=== PATIENT | male | born 1960 | race Caucasian/White ===

== ENCOUNTER 2018-06-05 13:15 | Outpatient (RCR) | payer OTHER, SELFPAY ==
--- NOTE | 2017-08-07 15:55 | MASS.EVAL_ITS ---
Massage Therapy Evaluation: Initial Evaluation Date: 08/03/2017 SUBJECTIVE: Keven is a 56 year old male who was referred to the [facility] facility for a massotherapy evaluation by Dr. Bernardo García with the diagnosis of leg pain and low back pain. Keven presents today with the symptoms of tension, pain and numbness in his right leg and tension and pain in his middle and lower back. He reports having a medical history of surgery on his right knee in May 2016 with radiating pain and numbness in his right leg since surgery. He reports having minimal limitations during his daily activities currently. OBJECTIVE: Upon observation Keven has poor posture with his head forward and shoulders forward from the neutral position in sitting and standing. After examination and palpation I found Keven to have very high muscle tension with tenderness and myofascial restrictions in his right quads, hamstrings, gastroc and soleus. His thoracic and lumbar paraspinals were tender with muscle knots. His hips and lumbar region were also tight with tender points. The first treatment consisted of a one hour massage to his lower extremities and back with myofascial release, muscle stripping, trigger point compression techniques, and cervical manual traction. ASSESSMENT: I feel that Keven is a good candidate for massotherapy at this time. He had a favorable response to the first treatment with reduction in his muscle aches, pain and tension. He also had improvement in his lower extremity flexibility. PLAN: The plan of care was reviewed with the patient. The patient is to be seen on as needed basis for a total of ten sessions with the recommendation of once every four weeks for a one hour treatment.
--- NOTE | 2018-06-05 19:56 | DS.PCM_ITS ---
Massage Therapy Discharge Summary: Discharge Date: 06/05/2018 Keven was seen for a massotherapy evaluation on 08/03/2017 with the diagnosis of leg pain and low back pain. He was treated with ten sessions of massage therapy consisting of deep pressure soft tissue techniques, myofascial release and trigger point compression to his thoracic, lower back, hips and lower extremities. Keven responded well to the therapy by reporting decreased tension and pain throughout his lower back, hips and legs. His goals for therapy were met throughout the treatment sessions. At this time this patient is being discharged from our care at [facility] facility.
== END 2018-06-05 19:00 | disposition home or self-care (01) ==
LOC: MASS 13:15
PROVIDERS: Family Provider Family Medicine; PCP Family Medicine; Visit Provider Family Medicine
DX: M54.5 Low back pain (principal)
CPT/HCPCS: 97124

== ENCOUNTER 2019-06-24 11:15 | Outpatient (RCR) | payer OTHER, SELFPAY ==
--- NOTE | 2018-12-11 16:33 | MASS.EVAL_ITS ---
Massage Therapy Evaluation: Initial Evaluation Date: 12/10/2018 SUBJECTIVE: Keven is a 57 year old male who was referred to the [facility] facility for a massotherapy evaluation by Dr. García with the diagnosis of hip deformity. Keven presents today with the symptoms of pain and tension in his right calf. He also complains of tension and pain in his neck, low back and hips. Keven reports that he has a past medical history of a right partial knee replacement and issues with his gastroc/soleus and achilles tendons. He reports having increa sed symptoms since running two days ago. OBJECTIVE: Upon observation Keven has some posture issues with his head and shoulders forward from the neutral position in sitting and standing. After examination and palpation I found Keven to have high muscle tension with tenderness and myofascial restrictions in his sub occipitals, levator scapulae, trapezius, rhomboids, scalenes, and thoracic paraspinals. His QL?s, lumbar paraspinals, piriformis, glute medius, glute minimus, quads, hamstrings and calves all had high tension with fascial restrictions and tender points. His right gastroc/soleus muscles were tender with ropey fibers in the central/medial aspect. The first treatment consisted of a one hour massage to his legs, hips, back and neck with myofascial release, muscle stripping, trigger point compression techniques. ASSESSMENT: I feel that Keven is a good candidate for massotherapy at this time. He had a favorable response to the first treatment with reduction in his muscle aches, pain and tension. He also had improvement in his cervical flexibility and low back flexibility. PLAN: The plan of care was reviewed with the patient. The patient is to be seen on an as needed basis for a total of ten sessions with the recommendation of once every month for a one hour treatment.
--- NOTE | 2019-06-24 12:25 | DS.PCM_ITS ---
Massage Therapy Discharge Summary: Discharge Date: 06/24/2019 Keven was seen for a massotherapy evaluation on 12/10/2018 with the diagnosis of hip deformity. He was treated with ten sessions of massage therapy consisting of moderate to deep pressure soft tissue techniques, myofascial release and trigger point compression to his cervical, thoracic, lower back, upper extremities, lower extremities and hips. Keven responded well to the therapy by reporting decreased tension and pain throughout his head, neck, shoulders, lower back and hips. His goals for therapy were met throughout the treatment sessions. At this time this patient is being discharged from our care at [facility] facility.
== END 2019-06-24 19:00 | disposition home or self-care (01) ==
LOC: MASS 11:15
PROVIDERS: Family Provider Family Medicine; PCP Family Medicine; Referring Provider Family Medicine; Visit Provider Family Medicine
DX: M21.959 Unspecified acquired deformity of unspecified thigh (principal)
CPT/HCPCS: 97124

== ENCOUNTER → 2020-03-12 | Outpatient (CLI) | payer OTHER, SELFPAY ==
[2017-07-26 14:18] VITALS: BMI 28.2
[2020-03-12 11:09] LABS: PSA,Total - Annual Screen 0.64 ng/mL (0.00-4.00)
== END | disposition home or self-care (01) ==
LOC: MFPLAB 08:30
PROVIDERS: PCP Family Medicine; Referring Provider Family Medicine; Visit Provider Family Medicine
DX: Z12.5 Encounter for screening for malignant neoplasm of prostate (principal)
CPT/HCPCS: 84153; G0103

== ENCOUNTER 2020-05-28 07:00 | Outpatient (RCR) | payer OTHER, SELFPAY ==
--- NOTE | 2019-08-30 09:47 | MASS.EVAL ---
Massage Therapy Evaluation: Massage Therapy Evaluation Initial Evaluation Date- 08-23-2019 Subjective- Keven Pérez was referred to [facility] by Doctor García for back and neck pain. Objective- Patient goals are to decrease right leg symptoms and to decrease tightness in right calf. Treatment - 60 minute massage therapy to lower body. Treatment of (B) quadriceps, hamstrings, gastrocnemius and soleus muscles, with attention to R soleus laterallly. Plan- Patient responded well to first treatment. To be seen one time per month for a total of ten treatments. KaraB. Marroquin
--- NOTE | 2020-06-15 11:52 | MASS.DISCH ---
Massage Therapy Discharge Summary: Initial Evaluation Date: 08/23/2019 Diagnosis: Back and Neck pain No. of Visits: 9 Date of last visit: 05/28/2020 This patient is being discharged from our care at the [facility]. Thank you, Luz Rajan LMT
== END 2020-05-28 19:00 | disposition home or self-care (01) ==
LOC: MASS 07:00
PROVIDERS: PCP Family Medicine; Referring Provider Family Medicine; Visit Provider Family Medicine
DX: M54.9 Dorsalgia, unspecified (principal); M54.2 Cervicalgia
CPT/HCPCS: 97124

== ENCOUNTER → 2020-08-25 | Outpatient (CLI) | payer OTHER, SELFPAY ==
[2017-07-26 14:18] VITALS: BMI 28.2
[2020-08-26 18:35] LABS: M R Staph aureus DNA By PCR Negative (Negative); Probe Check PASS; Specimen Processing Control PASS; Staph aureus DNA By PCR NEGATIVE (Negative)
== END | disposition home or self-care (01) ==
PROVIDERS: PCP Family Medicine; Referring Provider Podiatrist; Visit Provider Podiatrist
DX: L97.829 Non-pressure chronic ulcer of other part of left lower leg with unspecified severity (principal)
CPT/HCPCS: 87070; 87075; 87205; 87640

== ENCOUNTER 2021-04-12 09:45 | Outpatient (RCR) | payer OTHER, SELFPAY ==
[2017-07-26 14:18] VITALS: BMI 28.2
--- NOTE | 2020-08-31 15:36 | MASS.EVAL ---
Massage Therapy Evaluation: Initial Evaluation Date: 08/27/2020 SUBJECTIVE: Keven is a 59 year old male who was referred to the [facility] facility for a massotherapy evaluation by Dr. García with the diagnosis of dorsalgia and cervicalgia. Keven presents today with the symptoms of pain and tension in his head, neck, shoulders, back, hips and calf muscles. Keven reports having some pain and inflammation in his left foot from having a plantar wart removed about a week ago. He reports having minimal change in symptoms after his routine exercise stretching program. OBJECTIVE: Upon observation Keven has some posture issues with his head and shoulders forward from the neutral position in sitting and standing. After examination and palpation I found Keven to have high muscle tension with tenderness and myofascial restrictions in his sub occipitals, levator scapulae, trapezius, rhomboids, scalenes, and paraspinals muscle group. His QL?s, lumbar paraspinals, piriformis, glute medius, glute minimus and gastrocks all had high tension with fascial restrictions and tender points. The first treatment consisted of a one hour massage with myofascial release, muscle stripping, trigger point compression techniques. ASSESSMENT: I feel that Keven is a good candidate for massotherapy at this time. He had a favorable response to the first treatment with reduction in his muscle aches, pain and tension. He also had improvement in his cervical flexibility and low back flexibility. PLAN: The plan of care was reviewed with the patient. The patient is to be seen on an as needed basis for a total of ten sessions with the recommendation of once every month for a one hour treatment.
--- NOTE | 2021-06-14 12:39 | MASS.DISCH ---
Massage Therapy Discharge Summary: Discharge Date: 06/14/2021 Keven was seen for a massotherapy evaluation on 08/27/2020 with the diagnosis of dorsalgia and cervicalgia. He was treated with nine sessions of massage therapy consisting of deep pressure soft tissue techniques, myofascial release and trigger point compression to his cervical, thoracic, lower back and hips. Keven responded well to the therapy by reporting decreased tension and pain throughout his neck, shoulders, lower back, lower extremities and hips. His goals for therapy were met throughout the treatment sessions. At this time this patient is being discharged from our care at [facility] facility.
== END 2021-04-12 19:00 | disposition home or self-care (01) ==
LOC: MASS 09:45
PROVIDERS: PCP Family Medicine; Referring Provider Family Medicine; Visit Provider Family Medicine
DX: M54.2 Cervicalgia (principal)
CPT/HCPCS: 97124

== ENCOUNTER 2021-07-05 09:11 | Outpatient (CLI) | payer OTHER, SELFPAY ==
--- NOTE | 2021-07-05 09:15 | RAD_ITS ---
STUDY: X-RAY - LEFT KNEE REASON FOR EXAM: Male, 60 years old. Pain TECHNIQUE: 4 view(s) of the knee. COMPARISON: Comparison is made with prior study dated 01/23/2015. FINDINGS: Normal visualized distal femur. Normal visualized proximal tibia and fibula. Normal proximal tibiofibular articulation. There is moderate degenerative arthrosis of the medial femorotibial compartment with moderate joint space narrowing. Normal lateral femorotibial compartment. There is mild degenerative arthrosis of the patellofemoral articulation. Small joint effusion. RAD/Knee 4 or More Views IMPRESSION: Degenerative arthrosis. Electronically Signed: Gene Chang MD at 13:20 EST , Service support ,
--- NOTE | 2021-07-05 09:20 | RAD_ITS ---
STUDY: X-RAY - RIGHT KNEE REASON FOR EXAM: Male, 60 years old. Pain TECHNIQUE: 4 view(s) of the knee. COMPARISON: Comparison is made with prior examination dated 06/25/2015. FINDINGS: There is demineralization of the visualized distal femur. Normal visualized proximal tibia and fibula. Normal proximal tibiofibular articulation. The patient is status post medial hemiarthroplasty. There is good alignment. Normal lateral femorotibial compartment. Normal patellofemoral articulation. Small joint effusion. RAD/Knee 4 or More Views IMPRESSION: Status post right medial hemiarthroplasty. Small joint effusion. Electronically Signed: Gene Chang MD at 13:22 EST , Service support ,
== END 2021-07-05 23:59 | disposition home or self-care (01) ==
LOC: MTRAD 09:12
PROVIDERS: PCP Family Medicine; Referring Provider Orthopaedic Surgery; Visit Provider Orthopaedic Surgery
DX: M25.562 Pain in left knee (principal); M25.561 Pain in right knee
CPT/HCPCS: 73564

== ENCOUNTER 2021-08-24 08:48 | Outpatient (CLI) | payer OTHER, SELFPAY ==
[2021-08-24 10:17] LABS: Absolute Lymphocyte Count 1.54 X10^3/uL (0.83-4.51); Absolute Neutrophil Count 3.5 X10^3/uL (2.0-7.7); Basophil# 0.05 X10^3/uL; Basophil% 0.8 % (0-1); Eosinophil# 0.35 X10^3/uL; Eosinophils% 5.8 % (0-5); Hemoglobin 15.4 g/dL (13.0-16.5); Lymphocyte # 1.54 X10^3/ul (0.83-4.51); Lymphocyte % 25.6 % (19-41); Mean Corp Hgb Conc 33.5 g/dL (32-36); Mean Corpuscular Hgb 29.4 pg (27.0-32.0); Mean Corpuscular Volume 87.8 fL (80-94); Mean Platelet Vol. 10.1 fl (6.2-12.0); Monocyte% 8.3 % (0-10); NRBC Flagged by Analyzer 0 % (0-5); Neutrophil # 3.54 X10^3/uL (2.7-7.7); Platelet Count 230 K/mm3 (150-450); RBC Distribution Width CV 12.2 % (11.6-14.6); RBC Distribution Width SD 39.3 fl (35.1-43.9); Red Blood Count 5.24 M/mm3 (4.6-6.2)
[2021-08-24 10:23] LABS: Prothrombin Time (Protime)PT. 12.6 SECONDS (11.7-14.9)
[2021-08-24 10:24] LABS: Partial Thromboplast Time 28.4 Seconds (24.1-36.2)
[2021-08-24 10:33] LABS: Anion Gap 3 (5-15); BUN 18 mg/dL (7-18); BUN/Creat Ratio 15.1 RATIO (10-20); Calcium,Total 9.2 mg/dL (8.5-10.1); Chloride 111 mmol/L (98-107); Creatinine, Serum 1.19 mg/dL (0.70-1.30); EST Glomerular Filtration Rate 67 mL/min (>60); Est Glom Filt Rate - Afr Amer 81 mL/min (>60); Glucose 99 mg/dL (74-106); Potassium 4.3 mmol/L (3.5-5.1); Sodium Level 141 mmol/L (136-145)
[2021-08-24 10:43] LABS: Vitamin D,25 Hydroxy 30.4 ng/mL
== END 2021-08-24 23:59 | disposition home or self-care (01) ==
LOC: MFPLAB 08:49
PROVIDERS: PCP Family Medicine; Referring Provider Family Medicine; Visit Provider Family Medicine
DX: Z01.818 Encounter for other preprocedural examination (principal); Z12.5 Encounter for screening for malignant neoplasm of prostate; E55.9 Vitamin D deficiency, unspecified
CPT/HCPCS: 36415; 80048; 82306; 84153; 85025; 85610; 85730; 87086; G0103

== ENCOUNTER → 2024-03-11 | Outpatient (CLI) | payer OTHER, SELFPAY ==
[2024-03-11 07:29] LABS: Bacteria 0 SEEN /hpf (None Seen); Mucous, Urine 0 SEEN /hpf (<or=2+); Red Blood Cells-Urine 0 SEEN /hpf (0-5); Squamous Epithelial Cells - UA 0 SEEN /hpf (0-5); White Blood Cells 0 SEEN /hpf (0-5)
[2024-03-11 10:29] LABS: Color, Urine Yellow (Yellow); Glucose, Dipstick Normal (Normal); Ketone-Dipstick Negative (Negative); Leukocyte Esterase-Dipstick Negative /ul (Negative); Nitrite-Dipstick Negative (Negative); Occult Blood-Urine Negative /ul (Negative); Protein-Dipstick Negative (Negative); Specific Gravity, Urine 1.025 (1.002-1.030); Urine Bilirubin Dipstick Negative (Negative); Urine Clarity Clear (Clear); Urine Urobilinogen Normal (Normal)
[2024-03-11 10:34] LABS: Absolute Lymphocyte Count 1.46 X10^3/uL (0.83-4.51); Absolute Neutrophil Count 3.4 X10^3/uL (2.0-7.7); Basophil# 0.02 X10^3/uL; Basophil% 0.4 % (0-1); Eosinophil# 0.21 X10^3/uL; Eosinophils% 3.7 % (0-5); Hematocrit 44.2 % (40-54); Hemoglobin 14.6 g/dL (13.0-16.5); Lymphocyte # 1.46 X10^3/ul; Lymphocyte % 25.6 % (19-41); Mean Corpuscular Hgb 29.1 pg (27.0-32.0); Mean Platelet Vol. 9.9 fl (6.2-12.0); Monocyte% 10.5 % (0-10); NRBC Flagged by Analyzer 0 % (0-5); Neutrophil % 59.4 % (47-70); Platelet Count 255 K/mm3 (150-450); RBC Distribution Width CV 12.3 % (11.6-14.6); RBC Distribution Width SD 39.9 fl (35.1-43.9); Red Blood Count 5.02 M/mm3 (4.6-6.2); White Blood Count 5.7 K/mm3 (4.4-11.0)
[2024-03-11 10:52] LABS: ALB/GLOB Ratio 1.1 RATIO (0.9-2.4); AST(SGOT) 22 U/L (15-37); Alanine Aminotransfer ALT/SGPT 34 U/L (16-61); Albumin, Serum 3.5 g/dL (3.2-5.0); Alkaline Phosphatase 87 U/L (45-117); Anion Gap 7 (5-15); BUN 20 mg/dL (7-18); BUN/Creat Ratio 15.3 RATIO (10-20); Bilirubin, Direct 0.33 mg/dL (0.00-0.30); Calcium,Total 9.4 mg/dL (8.5-10.1); Chloride 106 mmol/L (98-107); Cholesterol 160 mg/dL (200); Creatinine, Serum 1.31 mg/dL (0.70-1.30); EST Glomerular Filtration Rate 59 mL/min (>60); Est Glom Filt Rate - Afr Amer 72 mL/min (>60); Globulin 3.3 g/dL (2.2-4.2); Glucose 95 mg/dL (74-106); High Density Lipoprotein 56 mg/dL; LDH 172 U/L (87-241); PSA,Total - Annual Screen 0.75 ng/mL (0.00-4.00); Phosphorus 2.3 mg/dL (2.5-4.9); Potassium 4.2 mmol/L (3.5-5.1); Protein, Total 6.8 g/dL (6.4-8.2); Sodium Level 140 mmol/L (136-145); Triglycerides 119 mg/dL; Uric Acid 6.2 mg/dL (3.5-7.2); Very Low Density Lipoprotein 24 mg/dL (5-40)
[2024-03-11 10:53] LABS: Vitamin D,25 Hydroxy 80.4 ng/mL
[2024-03-19 16:10] LABS: Testosterone, % Free 3.76 % (1.50-4.20); Testosterone, Free 11.58 ng/dL (5.00-21.00); Testosterone, Total 308 ng/dL (264-916)
== END | disposition home or self-care (01) ==
PROVIDERS: PCP Family Medicine; Referring Provider Family Medicine; Visit Provider Family Medicine
DX: Z12.5 Encounter for screening for malignant neoplasm of prostate (principal); E29.1 Testicular hypofunction; E55.9 Vitamin D deficiency, unspecified
CPT/HCPCS: 81001; 82306; 84153; 84402; 84403; G0103

== ENCOUNTER 2024-05-03 05:40 | Day surgery (SDC) | payer OTHER, SELFPAY ==
[2024-05-03] VITALS (8 sets, daily range): BP systolic 102–147; BP diastolic 66–79; PULSE 56–72; RESP 16–18; TEMP 36.3–36.7; O2SAT 96–99; BMI 25.8
== END 2024-05-03 07:47 | disposition home or self-care (01) ==
LOC: EN 05:41 → AC 05:42
PROVIDERS: PCP Family Medicine; Referring Provider Family Medicine; Visit Provider Internal Medicine Gastroenterology
PROC: 0DJD8ZZ Inspection of Lower Intestinal Tract, Via Natural or Artificial Opening Endoscopic (ICD-10-PCS; CPT 45378; principal; 2024-05-03 06:25)
DX: Z12.11 Encounter for screening for malignant neoplasm of colon (principal); D12.0 Benign neoplasm of cecum; K57.30 Diverticulosis of large intestine without perforation or abscess without bleeding
CPT/HCPCS: 45385; 88305; A4216; J2405

== ENCOUNTER 2024-11-09 22:04 | Inpatient (IN) | payer OTHER, SELFPAY ==
[2024-11-09 22:05] VITALS: BP 133/75; PULSE 50; RESP 18; TEMP 36.4; O2SAT 100
[2024-11-09 22:07] VITALS: BMI 25.4
[2024-11-09 22:11] VITALS: BP 153/81; PULSE 62; RESP 16; O2SAT 99
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
[2024-11-09] MEDS: Diphth,Pertuss(Acell),Tet Vac 0.5 ML Vial IM (22:31)
[2024-11-09] MEDS: Morphine 4 MG/ML Syringe IV ×2 (22:38→23:22)
--- NOTE | 2024-11-09 22:50 | RAD_ITS ---
PROCEDURE: SHOULDER MIN 2 VIEWS 11/09/2024 REASON FOR EXAM: INJURY/PAIN TECHNIQUE: Two views of the right shoulder COMPARISON: None FINDINGS: No acute fracture or dislocation. Mild degenerative changes of the glenohumeral and acromioclavicular joint. Acromiohumeral interval is maintained. Imaged lung ash are clear RAD/Shoulder min 2 Views IMPRESSION: No acute fracture or dislocation. Reading Location: [facility]
--- NOTE | 2024-11-09 22:50 | RAD_ITS ---
PROCEDURE: HIP, UNI W/ PELVIS 2-3 VIEWS 11/09/2024 REASON FOR EXAM: INJURY/PAIN TECHNIQUE: Three views of the right hip COMPARISON: None FINDINGS: Nondisplaced impacted fracture right femoral neck. Additional lucency along the posterior acetabulum, also concerning for a fracture. Mild bilateral osteoarthritis. No suspicious lytic or blastic lesions. SI joints are unremarkable. RAD/HIP, UNI W/ Pelvis 2-3 Views IMPRESSION: Nondisplaced impacted right femoral neck fracture and nondisplaced fracture pos terior acetabulum. Reading Location: [facility]
[2024-11-09 23:11] VITALS: BP 144/70; PULSE 63; RESP 16; TEMP 37; O2SAT 97
--- NOTE | 2024-11-09 23:14 | EKG12_ITS ---
Test Reason : DYSRHYTHMIA Blood Pressure : */* mmHG Vent. Rate : 62 BPM Atrial Rate : 62 BPM P-R Int : 162 ms QRS Dur : 96 ms QT Int : 440 ms P-R-T Axes : 31 10 5 degrees QTcB Int : 446 ms Sinus rhythm with occasional Premature ventricular complexes Otherwise normal ECG Confirmed by SEBASTIAN LIN, ROMEL ([id number]), science editor FÁTIMA ARITA ([id number]) on 11/11/2024 9:21:16 AM Referred By: Confirmed By: ROMEL CORTES MD
[2024-11-09 23:32] VITALS: BP 141/73; PULSE 60; RESP 16; TEMP 36.7; O2SAT 96
[2024-11-09 23:32] LABS: Absolute Lymphocyte Count 2.46 X10^3/uL (0.83-4.51); Absolute Neutrophil Count 6.9 X10^3/uL (2.0-7.7); Basophil# 0.06 X10^3/uL; Basophil% 0.6 % (0-1); Eosinophil# 0.26 X10^3/uL; Eosinophils% 2.4 % (0-5); Hematocrit 45.5 % (40-54); Hemoglobin 15.5 g/dL (13.0-16.5); Lymphocyte # 2.46 X10^3/ul (0.83-4.51); Lymphocyte % 23.1 % (19-41); Mean Corp Hgb Conc 34.1 g/dL (32-36); Mean Corpuscular Hgb 30.2 pg (27.0-32.0); Mean Corpuscular Volume 88.7 fL (80-94); Mean Platelet Vol. 10.4 fl (6.2-12.0); Monocyte# 0.96 X10^3/uL; NRBC Flagged by Analyzer 0 % (0-5); Neutrophil # 6.85 X10^3/uL (2.7-7.7); Neutrophil % 64.5 % (47-70); Platelet Count 242 K/mm3 (150-450); RBC Distribution Width CV 12.4 % (11.6-14.6); RBC Distribution Width SD 40.8 fl (35.1-43.9); Red Blood Count 5.13 M/mm3 (4.6-6.2); White Blood Count 10.6 K/mm3 (4.4-11.0)
[2024-11-09 23:45] LABS: International Normalized Ratio 1.1
[2024-11-09 23:46] LABS: Partial Thromboplast Time 24.4 Seconds (24.1-36.2)
[2024-11-10] VITALS (17 sets, daily range): BP systolic 119–168; BP diastolic 63–87; PULSE 55–84; RESP 14–17; TEMP 36.1–37.2; O2SAT 88–98; BMI 25.7
[2024-11-10 00:03] LABS: Anion Gap 13 (5-15); BUN 16 mg/dL (4-19); BUN/Creat Ratio 11.7 RATIO (10-20); Calcium,Total 9.7 mg/dL (7.6-11.0); Carbon Dioxide 25.2 mmol/L (21.0-32.0); Chloride 99 mmol/L (98-108); Creatinine, Serum 1.39 mg/dL (0.70-1.20); EST Glomerular Filtration Rate 58 (>60); Estimated Creatinine Clearance 63.07 ml/min (50-250); Glucose 105 mg/dL (70-99); Potassium 3.7 mmol/L (3.3-5.1); Sodium Level 138 mmol/L (133-145)
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
[2024-11-10 00:57] LABS: AST(SGOT) 37 U/L (<=37); Alanine Aminotransfer ALT/SGPT 28 U/L (<=46); Albumin, Serum 4.5 g/dL (3.4-4.8); Alkaline Phosphatase 88 U/L (40-129); Bilirubin, Direct 0.56 mg/dL (0.00-0.30); CPK Total, Creatine Kinase 283 U/L (24-195); Globulin 2.7 g/dL (2.2-4.2); Protein, Total 7.2 g/dL (5.9-8.4); Total Bilirubin 3.52 mg/dL (0.00-1.30)
[2024-11-10] MEDS: HYDROmorphone 0.5 MG/0.5 ML SYRINGE 0.2 MG IV (01:23)
[2024-11-10] MEDS: oxyCODONE 5 MG Tablet PO ×3 (01:37→22:06)
[2024-11-10 05:35] LABS: Absolute Lymphocyte Count 1.51 X10^3/uL (0.83-4.51); Absolute Neutrophil Count 5.1 X10^3/uL (2.0-7.7); Basophil# 0.03 X10^3/uL; Basophil% 0.4 % (0-1); Eosinophil# 0.21 X10^3/uL; Eosinophils% 2.8 % (0-5); Hematocrit 42.4 % (40-54); Hemoglobin 14.5 g/dL (13.0-16.5); Lymphocyte # 1.51 X10^3/ul (0.83-4.51); Lymphocyte % 19.9 % (19-41); Mean Corp Hgb Conc 34.2 g/dL (32-36); Mean Corpuscular Hgb 30.3 pg (27.0-32.0); Mean Corpuscular Volume 88.5 fL (80-94); Mean Platelet Vol. 10.1 fl (6.2-12.0); Monocyte# 0.68 X10^3/uL; NRBC Flagged by Analyzer 0 % (0-5); Neutrophil # 5.13 X10^3/uL (2.7-7.7); Neutrophil % 67.6 % (47-70); Platelet Count 202 K/mm3 (150-450); RBC Distribution Width CV 12.2 % (11.6-14.6); RBC Distribution Width SD 39.8 fl (35.1-43.9); Red Blood Count 4.79 M/mm3 (4.6-6.2); White Blood Count 7.6 K/mm3 (4.4-11.0)
[2024-11-10] MEDS: Acetaminophen 325 MG Tablet 650 MG PO (05:40)
[2024-11-10 05:46] LABS: International Normalized Ratio 1.1; Prothrombin Time (Protime)PT. 14.7 SECONDS (11.7-14.9)
[2024-11-10] MEDS: HYDROmorphone Inj 0.2 MG/ML SYRINGE IV (06:19)
[2024-11-10 07:07] LABS: ALB/GLOB Ratio 1.7 RATIO (0.9-2.4); AST(SGOT) 33 U/L (<=37); Alanine Aminotransfer ALT/SGPT 23 U/L (<=46); Albumin, Serum 3.9 g/dL (3.4-4.8); Alkaline Phosphatase 74 U/L (40-129); Anion Gap 10 (5-15); BUN 15 mg/dL (4-19); BUN/Creat Ratio 10.8 RATIO (10-20); Bilirubin, Direct 0.33 mg/dL (0.00-0.30); Calcium,Total 9.2 mg/dL (7.6-11.0); Chloride 104 mmol/L (98-108); Creatinine, Serum 1.41 mg/dL (0.70-1.20); EST Glomerular Filtration Rate 57 (>60); Estimated Creatinine Clearance 62.18 ml/min (50-250); Globulin 2.3 g/dL (2.2-4.2); Glucose 107 mg/dL (70-99); Potassium 4.2 mmol/L (3.3-5.1); Protein, Total 6.2 g/dL (5.9-8.4); Sodium Level 138 mmol/L (133-145); Total Bilirubin 4.07 mg/dL (0.00-1.30)
[2024-11-10 07:10] LABS: Magnesium 2.2 mg/dL (1.5-2.2); Phosphorus 3.8 mg/dL (2.7-4.5)
--- NOTE | 2024-11-10 08:57 | PCM.PRE.AN2 ---
ASA Classification* ASA Classification ASA Classification: 2 and E Assessment & Plan Anesthesia* Anesthesia Assessment Anesthesia Assessment: Discussed sedation and/or anesthesia options, risks, benefits, and alternatives with patient/parents/legal guardian/POA. Questions invited. The patient/parents/legal guardian/POA seems to understand and agrees to proceed with anesthesia plan. Reviewed the physical assessment, medical history, allergy history and patient home medications list prior to surgery/procedure/anesthetic and documented any changes. Performed airway and anesthesia risk assessments. Anesthesia Type Anesthesia Type: General (LMA, check ekg) Anesthesia Focused Assessment* Temperature: 97.4 F Pulse Rate: 55 Blood Pressure: 124/75 Respiratory Rate: 14 Pulse Ox: 97 Airway Assessment Mouth opens: >3 cm Mallampati Score: II Focused Labs Anesthesia Preop lab: CBC WBC 7.6 K/mm3 (4.4-11.0) 11/10/24 04:36 11/10/24 RBC 4.79 M/mm3 (4.6-6.2) 11/10/24 04:36 11/10/24 Hgb 14.5 g/dL (13.0-16.5) 11/10/24 04:36 11/10/24 Hct 42.4 % (40-54) 11/10/24 04:36 11/10/24 Plt Count 202 K/mm3 (150-450) 11/10/24 04:36 11/10/24 CHEMISTRY Potassium 4.2 mmol/L (3.3-5.1) 11/10/24 04:36 11/10/24 Sodium 138 mmol/L (133-145) 11/10/24 04:36 11/10/24 Magnesium 2.2 mg/dL (1.5-2.2) 11/10/24 04:36 11/10/24 Phosphorus 3.8 mg/dL (2.7-4.5) 11/10/24 04:36 11/10/24 BUN 15 mg/dL (4-19) 11/10/24 04:36 11/10/24 Creatinine 1.41 mg/dL (0.70-1.20) H 11/10/24 04:36 11/10/24 Glucose 107 mg/dL (70-99) H 11/10/24 04:36 11/10/24 TSH 4.790 uIU/mL (0.300-4.200) H 11/10/24 04:36 11/10/24 COAG PT 14.7 SECONDS (11.7-14.9) 11/10/24 04:36 11/10/24 Pre-Assessment Diagnosis/Proposed Procedure Planned Operative Procedure(s): orif right hip/ ant r hip replacement Anesthesia History Anesthesia History - racker octave board: Anesthesia History - racker octave board Hx Hospitalization No 05/01/24 15:51 Any Problems With Anesthesia Yes: cant wake up, and cant 11/10/24 00:46 void Cholinesterase deficiency No 11/10/24 00:46 You/Your Family Experience No 11/10/24 00:46 fever (hyperthermia) with Relationship Recent Exposure to Contagious No 11/10/24 00:46 Disease Does patient have nerve No 11/10/24 00:46 stimulator Patient instructed to have No 11/10/24 00:46 device shut off --Does patient have Pacemaker No 11/10/24 05:41 or ICD? When Was Last Pacemaker Check QUESTION #4 FULL TEXT: You/Your Family Experience fever (hyperthermia) with Anesthesia Last Oral Intake Last Oral intake: Last Oral Intake NPO since 00:00 11/10/24 05:41 Meds taken in AM with sips of Yes 11/10/24 05:41 water? Meds patient instructed to oxycodone & tylenol 11/10/24 05:41 take am of surgery PONV PONV - racker octave board: PONV - racker octave board Female HX of Motion Sickness HX of N/V After Surgery Non-Smoker Duration of Surgery greater than 60 minutes Number of Risk Factors PONV Score Height & Weight Height & Weight: Anesthesia: Height & Weight Height 6 ft 1 in 11/10/24 05:41 Weight: 88.541 kg 11/10/24 05:41 Body Mass Index (BMI) 25.7 11/10/24 05:41 Respiratory Assessment Respiratory Assessment - racker octave board: Respiratory Tract Infection Hx - racker octave board Hx Respiratory Tract Infection No 11/10/24 00:46 STOP Sleep Apnea STOP Sleep Apnea - racker octave board: STOP Sleep Apnea - racker octave board Hx Hypertension No 11/10/24 08:28 Hx Sleep Apnea No 11/10/24 00:43 CPAP No 05/03/24 07:12 BIPAP No 07/29/14 08:00 Do you snore loudly (louder No 11/10/24 00:43 than talking or can be heard Do you often feel tired/ No 11/10/24 00:43 fatigued/ sleepy during daytime? Has anyone observed you stop No 11/10/24 00:43 breathing during sleep? STOP Results Negative 11/10/24 00:43 QUESTION #5 FULL TEXT : Do you snore loudly (louder than talking or can be heard through closed doors)? 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 Specify any problems Hx of Preganancy in last 3 No 11/10/24 00:43 Months Nurse Filling Out Transfusion DREDICK 11/10/24 00:43 & Questions: Date: 11/10/24 11/10/24 00:43 Time: 00:43 11/10/24 00:43 Patient unable to answer at this time (ie. confused, unrespo /Reproduction History /Reproductive History - racker octave board: /Reproductive Hx- racker octave board Hx Now No 11/10/24 00:46 Gestational Age (in weeks): EDC: Hx Hx Para Hx Section SAB No 11/10/24 00:46 Active Medications Active Medications: Current Medications Generic Name Dose Route Start Last Admin Trade Name Freq PRN Reason Stop Dose Admin Acetaminophen 650 mg 11/10/24 00:10 11/10/24 05:40 Acetaminophen 325 Mg Tablet PO 650 mg Q6H PRN PRN Administration Pain 1-10 Or Fever >100.7 Enoxaparin Sodium 40 mg 11/10/24 10:00 11/10/24 07:49 Enoxaparin 40 Mg/0.4 Ml Syringe SC Not Given DAILY OMAR Sodium Chloride 250 mls @ 15 mls/hr 11/10/24 00:29 IV .[id number] PRN Saline Flush Sodium Chloride 250 mls @ 15 mls/hr 11/10/24 00:29 IV .[id number] PRN Additional IVPB Infusion Oxycodone HCl 5 mg 11/10/24 00:10 11/10/24 05:39 Oxycodone 5 Mg Tablet PO 5 mg Q4H PRN PRN Administration Pain Score 4-10 Sodium Chloride 10 - 40 ml 11/10/24 00:29 0.9% Saline Lock 10 Ml Syringe IV UD PRN SALINE FLUSH [facility] Medical History Wears glasses Alcohol use Arthritis Non-smoker Melanoma Basal cell carcinoma Home Medications ?Medication ?Instructions ?Recorded ?Last Taken ?Type cholecalciferol (vitamin D3) 125 250 mcg PO QDAY 05/01/24 05/02/24 History mcg (5,000 unit) tablet (Vitamin D3) Allergy/AdvReac Type Severity Reaction Status Date / Time sulfamethoxazole (From Allergy Rash Verified 11/09/24 22:05 Bactrim) trimethoprim (From Bactrim) Allergy Rash Verified 11/09/24 22:05 Family History Mother Crohn's disease Basal cell carcinoma Father Diabetes Basal cell carcinoma Melanoma Surgical History History of medial meniscus repair of left knee Hx of left cataract extraction Hx of total knee arthroplasty Hx of tonsillectomy History of Achilles tendon repair History of partial knee replacement Social History household members: spouse number of children: 2 current occupational status: employed 

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
--- NOTE | 2024-11-10 10:04 | PCM.HOSP.N ---
Hospitalist Note Patient was seen and examined today, he is due to go to surgery today for repair of his right hip fracture, I talked briefly with orthopedic surgery about his care-it appears the patient will have a right hip arthroplasty. Patient appears comfortable at rest this morning and is not short of breath and does not complain of any chest pain. The only medication he takes at home is vitamin D3. Patient appears medically stable for surgery at this time.
--- NOTE | 2024-11-10 10:55 | FEM_PTH ---
PATIENT: LOYDA GONZALEZ LOC: [facility] U#:[id number] AGE/SX: 63/M ROOM: [facility] [place] RE11/10/[address]: Dr. Noel Case DO : 1960 BED: 1 DIS: 11/11/2024 SPEC #: [id number] RECD: 11/11/24 07:33 STATUS: ROBIN MARADIAGA #: [id number] NOREEN: 11/10/24 10:[address]: Inocencio Wallace DEPT: SURGICAL PATHOLOGY RECD BY: Jyoti Streeter ENTERED: 11/11/24 08:12 SP TYPE: FEM HEAD OTHR DR: MD Dr. Bernardo Rivera MD Dr. Mark Tereletsky, DO Tissues: A - Hip, NOS Femoral region, NOS Procedures: Decalcification bone/plaque Surgery Specimen Level IV HEADER OPERATION: Total hip anterior approach PRE-OP DIAGNOSIS: Closed fracture of neck of right femur TISSUE SUBMITTED: A- Right femoral head, right hip fracture MICROSCOPIC DIAGNOSIS A. Right hip, femoral head, fracture, arthroplasty: * Articular bone with reactive/degenerative changes and focal hemorrhage of fatty marrow spaces. MICROSCOPIC DESCRIPTION Slides are reviewed. GROSS DESCRIPTION A. Received in formalin in a container labeled with the patient's name, date of , and right femoral head, right hip fracture is a 4.9 x 4.9 x 3.4 cm femoral head with partial attached hemorrhagic and shaggy femoral neck measuring approximately 1.3 cm in length by 3 cm in greatest diameter. The cortical surface is firm and smooth. The resection margin is hemorrhagic. Sectioning reveals firm cut surfaces with scattered hemorrhage. Received in the same container are multiple bone and soft tissue fragments measuring 7.0 x 5.3 x 2.5 cm in aggregate. Sectioning reveals hemorrhagic cut surfaces. Supervisor [employer] sections are submitted in A1 following decalcification. [facility] 11-11-2024 CPT:44527,68390
[2024-11-10] MEDS: Cefazolin 2 GM in 0.9% Normal Saline (100mL Bag) 100 ML IV (11:18)
[2024-11-10] MEDS: TXA 1000mg in NS100 100ml (IVPB at Incision) 660 MG IV (11:28)
--- NOTE | 2024-11-10 11:55 | RAD_ITS ---
EXAM: XR Right Hip With Pelvis When Performed, 2 or 3 Views CLINICAL INDICATION: FX TECHNIQUE: Two or three views of the right hip with pelvis when performed. COMPARISON: No relevant prior studies available. FINDINGS: BONES/JOINTS: Unremarkable. No acute fracture. No dislocation. SOFT TISSUES: Unremarkable. OTHER FINDINGS: Fluoroscopic images were obtained intraoperatively. 10 images were obtained. Total fluoroscopy time 7.5 seconds. Total radiation dose 1.26 mGy. RAD/Hip 1 view with Pelvis IMPRESSION: Fluoroscopic guidance was used intraoperatively. Please refer to operative not e for further details. Reading Location: [id number]
[2024-11-10] MEDS: TXA 1000mg in NS100 100ml (IVPB at Closure) 660 MG IV (12:28)
--- NOTE | 2024-11-10 12:32 | OP.PCM_ITS ---
Problems Associated Problem List Diagnoses (1) Closed fracture of neck of right femur: Operative Report (Standard) Operative Information Date of Procedure: 11/10/24 Pre-Operative Diagnosis: Right hip displaced femoral neck fracture Post-Operative Diagnosis: Right hip displaced femoral neck fracture, grade 2 degenerative changes of the hip Surgery/Procedure Performed: Right direct anterior total replacement berry planter: Yes Ditching Machine Operator: Dennys Locke Tasks completed by wheelchair van operator first responder: Other (See body of operative report) Additional bioinformatics assistant?: No Type of Anesthesia: General RN Documented Start/Stop Times: Operation Date: 11/10/24 10:55 Case Time Anesthesia Start 11/10/24 11:07 Into Room 11/10/24 11:07 Procedure Start 11/10/24 11:28 Procedure End 11/10/24 13:00 Anesthesia End 11/10/24 13:13 Out of Room 11/10/24 13:13 Into Recovery 11/10/24 13:16 Out of Recovery 11/10/24 14:11 Procedure Start Time: 11:28 Procedure Stop Time: 13:00 Select all DRAINS/GRAFTS/IMPLANTS that apply: Prosthetic device Prosthetic device details: See body of operative report Special Medications: Ancef, joint cocktail (5 mg Duramorph, 30 mL of 0.5% Ropivicaine, 1000 units of epinephrine, 30 mg of Toradol) Estimated Blood Loss: 500 mL Fluids Replaced: 1000 L crystalloid Specimen collected: Yes Description of specimen(s) removed: Bony cuts Description of surgery: Components used: 1. Accolade 2 Luebbering femoral stem size 9/132 2. L[place]bbering trident 2 acetabular shell size 54 mm 3. Spencer X3 polyethylene E 4. [place]bering Biolox delta 36mm, -2.5mm femoral head Procedure: On the date of procedure the patient's R hip was marked in the preoperative area. Patient was then taken back to the operating room where anesthesia assumed control of the C-spine and airway and administered anesthetic. Patient was transferred to the operating table and placed in the supine position. The hips were placed at the break of the bed and a sacral bump was placed. The R lower extremity was then prepped out in a sterile fashion using chlorhexidine while the surgeon scrubbed. The PA was vital in the positioning of the patient. Upon reentering the room the R lower extremity was draped in the standard orthopedic fashion and the incision was marked. A timeout was called and everyone agreed upon the side, the site, the procedure be performed, antibody given, and patient's identity. At this time incision was made through skin, subcutaneous tissue, and fat down to fascia. The fascia was then incised and the TFL was retracted laterally. A retractor was placed on the lateral border of the femoral neck. Attention was directed to the inferior portion of the approach and all crossing vessels were identified and appropriately coagulated. A retractor was then placed on the medial portion of the femoral neck. The anterior capsule was then cleared of all soft tissue and then H shaped capsulotomy was made. The retractors were then placed inside the capsule. The femoral neck was identified and a cleanup cut was made. At this time a power corkscrew was used to remove the femoral head. Femoral head was measured and found to be 53 mm on the back table. Attention was then turned toward the acetabulum where the soft tissues were appropriately retracted and the acetabulum was sequentially reamed to 54 mm. A 54 mm cup was then selected and impacted into place. Acetabular liner was impacted into place and locking mechanism was verified. The position of the acetabular cup was then verified under live fluoroscopy. Attention was then turned to the femur. Soft tissue releases on the medial and lateral femoral neck were appropriately done, the leg was externally rotated and lateralized. A Daniels retractor was placed medially and proximally to the greater trochanter this allowed appropriate visualization and exposure of the femoral canal. Rongeour was then used to remove excess lateral bone. A canal finder and entry broach were used to open the proximal canal. Once we verified we were down the femoral canal we subsequently broached up to a size 9 femur. The appropriate neck was placed in the previously selected head was trialed with a -2.5 mm neck. We did initially trial a 8 femur with a +7.5 neck however, this gave his good leg lengths radiographically but increased offset compared to his point hope ira hip. Traction was pulled and the hip was reduced with internal rotation. Once it was appropriately reduced and stability was checked. There was minimal shuck, equal leg lengths and appropriate stability with hyperextension and external rotation as well as with 90? flexion and internal rotation. Fluoros copy was then also used to verify the position of the components and leg lengths using the contralateral side for comparison. The trial components were then dislocated the proximal femur was again exposed and the components were removed from the wound. The final components were verified and opened. The wound was copiously irrigated out with normal saline. The acetabulum was checked for any residual debris. The final components were placed and impacted. Traction and internal rotation were again used to reduce the hip. After adequate reduction the hip remained stable with appropriate leg lengths. The final components were once again checked with live fluoroscopy and were found to be satisfactory. The wound was then copiously irrigated with normal saline once more, and hemostasis was obtained. Closure was then done using #1 Vicryl runner to close the fascia. A 2-0 vicryl interuppted sutures were used to close the subcutaneous skin. A 3-0 Monocryl and Steri-Strips were used for final skin closure. A Silverlon dressing was placed. Patient was awakened by anesthesia and transferred to the [facility]. Patient was then transferred to the PACU for recovery. Postoperative plan: Patient will get 24 hours postop antibiotics. Patient will get in-house physical therapy and will be weight-bear as tolerated. Patient will follow up in office in 2 weeks for a wound check and x-rays. Aspirin 81 mg twice daily. Did discuss the use of NSAIDs postoperatively which can be helpful in prevention of heterotopic ossification however patient's GFR is borderline with some consistent elevation in his creatinine over his last couple years of lab work. Based on this we elected not to use NSAIDs as scheduled medication postoperatively. Patient was aware we would use some with the intraoperative injection. During the course of the procedure the physician hris developer (PE) played a vital role. Their intimate knowledge of my steps in the procedure aided in safe and expedient completion of the procedure. The PE played a vital rolls in positioning particularly in obtaining the appropriate positioning of the sacral bump. The PE was also vital in the retraction of soft tissues during the exposure and especially the femoral work as this is a vital part of the procedure to prevent complications and fractures. The PE was also vital and protecting soft tissues during times of bony cuts and reaming. He also played a vital role in closure with my direct supervision. The PE was also important during reduction and dislocation of the joint and trials intraoperatively. Surgical Findings: Stable hip. Equal leg lengths radiographically. Intraoperatively patient was noted to have some grade 2 degenerative changes throughout the hip Complications Complications: No Admit VTE Documentation VTE Present on Admission: No VTE Mechan Device Prophylaxis: SCD's and Thigh High JENNYFER Hose VTE Pharm Prophylaxis ordered?: Yes
[2024-11-10] MEDS: JPS (Morphine 10mg/ml) OPERA.SITE (12:35)
--- NOTE | 2024-11-10 13:24 | PCM.POST.ANE ---
Anesthesia: Postop Eval I Current Vital Signs Temperature: 97.4 F Pulse Rate: 84 Blood Pressure: 166/73 Respiratory Rate: 16 Pulse Ox: 93 Assessment Airway patent: Yes Spontaneous unlabored respirations: Yes nausea: No Vomiting: No Anesthesia Complication: No Fluid Hydration Crystalloid volume administer (ml): 1,000 Total IV fluid infused: 1,000 Progress Note Anesthesia document: Postop Eval 1 completed: Yes
--- NOTE | 2024-11-10 13:25 | RAD_ITS ---
EXAM: XR Right Hip With Pelvis When Performed, 2 or 3 Views CLINICAL INDICATION: POST OP TECHNIQUE: Two or three views of the right hip with pelvis when performed. COMPARISON: No relevant prior studies available. FINDINGS: BONES/JOINTS: Total hip replacement. Intact hardware. No acute fracture. No dislocation. SOFT TISSUES: Soft tissue emphysema and swelling. RAD/Hip Min 2 Views (Portable) IMPRESSION: Status post total hip replacement in anatomic position. Reading Location: [id number]
--- NOTE | 2024-11-10 13:29 | PCM.POSTANE2 ---
Anesthesia Postop Eval I Sum Postop Eval Completion status Anesthesia document: Postop Eval 1 completed: Yes Anesthesia Postop Eval I Summary Anesthesia Postop Eval I Summary: Anesthesia Postop Eval I: Assessment Summary Airway patent Yes 11/10/24 13:24 Spontaneous unlabored Yes 11/10/24 13:24 respirations Mental status nausea No 11/10/24 13:24 Vomiting No 11/10/24 13:24 Anesthesia Postop Eval I: Fluid Summary Crystalloid volume administer 1,000 11/10/24 13:24 (ml) Colloids volume administered ( ml) Blood Product volume administered (ml) Total IV fluid infused 1,000 11/10/24 13:24 Anesthesia Postop Eval I: Summary Notes Anesthesia Complication No 11/10/24 13:24 Anesthesia Complication Comment: Post-operative progress note Anesthesia: Postop Eval II Evaluation Mental status: Awake Pain Level: 0 nausea: No Vomiting: No
[2024-11-10] MEDS: Acetaminophen 500 MG Tablet 1000 MG PO ×2 (14:32→22:08)
[2024-11-10] MEDS: Ondansetron 4 MG/2 ML Vial IV (16:38)
[2024-11-10] MEDS: 0.9% Saline Lock 10 ML Syringe IV (16:38)
[2024-11-10] MEDS: Cefazolin 1 GM/50 ML BAG IV (18:36)
--- NOTE | 2024-11-10 18:36 | DCINST_ITS ---
Discharge Instructions Diet Discharge Diet: No restrictions DC O2, CPAP, BIPAP needs Home O2 Discharge instructions: No Dressing / Incision Discharge Activity: May Not Drive Weight Bearing Status: Weight bearing as tolerated Follow Up Care Test Results: Test results from this visit will be discussed in further detail at your follow- up appointment, if applicable. Discharge Plan Admission Admit Date/Time: 11/10/24 00:10 Primary Reason for Your Visit: Right hip fracture Attending Provider: Noel Case Primary Care Provider: Bernardo García Consulting Providers: Avinash Delacruz Instructions Additional Instructions / Restrictions: You may remove waterproof dressing on postop day 5, when waterproof dressing remains in place you can continue to shower, if dressing is to be changed to a nonocclusive dressing discontinue showering until incision is clean and dry Discharge Orders/Prescriptions Prescriptions: New aspirin 81 mg Tablet,Chewable 81 mg PO BIDCM Qty: 0 0RF Rx Instructions: Take 1 twice a day for 30 days for DVT prophylaxis oxycodone 5 mg Tablet 5 - 10 mg PO Q4H PRN PRN (Reason: Pain Score 4-10) 7 Days Qty: 20 0RF pantoprazole [Protonix] 40 mg tablet,delayed release (DR/EC) 40 mg PO DAILY Qty: 30 0RF Continued cholecalciferol (vitamin D3) [Vitamin D3] 125 mcg (5,000 unit) tablet 250 mcg PO QDAY Referrals / Follow Up: Bernardo García MD [Primary Care Provider] - Inocencio Wallace MD [Med Staff - Active Staff] - See Referral Note (In 2 weeks) Disposition Disposition (needs filled in before D/C Order can be placed): Home, Self Care
[2024-11-10] MEDS: Aspirin 81 MG TAB.CHEW PO (22:04)
[2024-11-10] MEDS: Senna/Docusate Sodium 1 Tablet 2 TABLET PO (22:06)
[2024-11-11] MEDS: oxyCODONE 5 MG Tablet PO ×3 (02:07→07:50)
[2024-11-11] MEDS: Cefazolin 1 GM/50 ML BAG IV (02:10)
[2024-11-11 02:36] VITALS: BP 117/43; PULSE 68; RESP 16; TEMP 37.1; O2SAT 97
[2024-11-11 05:15] LABS: Absolute Lymphocyte Count 1.37 X10^3/uL (0.83-4.51); Absolute Neutrophil Count 6.5 X10^3/uL (2.0-7.7); Basophil# 0.04 X10^3/uL; Basophil% 0.4 % (0-1); Eosinophil# 0.39 X10^3/uL; Eosinophils% 4.2 % (0-5); Hematocrit 35.1 % (40-54); Hemoglobin 11.8 g/dL (13.0-16.5); Lymphocyte # 1.37 X10^3/ul (0.83-4.51); Lymphocyte % 14.8 % (19-41); Mean Corp Hgb Conc 33.6 g/dL (32-36); Mean Corpuscular Hgb 30.2 pg (27.0-32.0); Mean Corpuscular Volume 89.8 fL (80-94); Mean Platelet Vol. 10.1 fl (6.2-12.0); Monocyte# 0.86 X10^3/uL; Monocyte% 9.3 % (0-10); NRBC Flagged by Analyzer 0 % (0-5); Neutrophil # 6.54 X10^3/uL (2.7-7.7); Neutrophil % 70.7 % (47-70); Platelet Count 152 K/mm3 (150-450); RBC Distribution Width CV 12.2 % (11.6-14.6); Red Blood Count 3.91 M/mm3 (4.6-6.2); White Blood Count 9.3 K/mm3 (4.4-11.0)
[2024-11-11 05:37] LABS: Anion Gap 8 (5-15); BUN 18 mg/dL (4-19); Calcium,Total 8.2 mg/dL (7.6-11.0); Carbon Dioxide 25.1 mmol/L (21.0-32.0); Chloride 103 mmol/L (98-108); Creatinine, Serum 1.52 mg/dL (0.70-1.20); EST Glomerular Filtration Rate 52 (>60); Estimated Creatinine Clearance 57.68 ml/min (50-250); Glucose 119 mg/dL (70-99); Sodium Level 136 mmol/L (133-145)
[2024-11-11 06:41] VITALS: BP 120/54; PULSE 72; RESP 18; TEMP 37.2; O2SAT 94
[2024-11-11] MEDS: Acetaminophen 500 MG Tablet 1000 MG PO (06:46)
--- NOTE | 2024-11-11 07:35 | PCM.PN.ORT ---
Subjective Subjective Patient is sitting comfortably in bed. Patient states that his pain has been adequately controlled. Patient states that he has been up to use the bathroom and been up to the side chair. Patient denies any new numbness or tingling. Patient denies any fevers, chills, signs of infection. Patient denies any shortness of breath, chest pain, calf pain. Patient denies any lightheadedness. Patient denies any adverse events overnight. Objective Data Objective Data Vital Signs: Vital Signs Temp Pulse Resp BP Pulse Ox O2 Del Method O2 Flow Rate 98.9 F 72 18 120/54 L 94 Room Air 2 11/11/24 06:41 11/11/24 06:41 11/11/24 06:41 11/11/24 06:41 11/11/24 06:41 11/11/24 06:41 11/10/24 14:19 Oxygen Flow Rate (L/min) 2 Oxygen Delivery Method Room Air Weight: 88.541 kg Body Mass Index (BMI) 25.7 Intake & Output: Intake and Output for Last 24 Hours 11/09/24 11/10/24 11/11/24 23:59 23:59 23:59 Intake Total 1520 / 1520 250 / 250 Output Total 400 / 400 Balance 1120 / 1120 250 / 250 Lab / Micro Data 11/11/24 04:40 11/11/24 04:40 Labs: Laboratory Results - last 24 hr 11/11/24 04:40: WBC 9.3, RBC 3.91 L, Hgb 11.8 L, Hct 35.1 L, MCV 89.8, MCH 30.2, MCHC 33.6, RDW Std Deviation 40.0, RDW Coeff of Nanci 12.2, Plt Count 152, MPV 10.1, Immature Gran % (Auto) 0.600, Neut % (Auto) 70.7 H, Lymph % (Auto) 14.8 L, Ralls % (Auto) 9.3, Eos % (Auto) 4.2, Baso % (Auto) 0.4, Absolute Neuts (auto) 6.5, Absolute Lymphs (auto) 1.37, Nucleated RBC % 0, Sodium 136, Potassium 4.0, Chloride 103, Carbon Dioxide 25.1, Anion Gap 8, BUN 18, Creatinine 1.52 H, Estim Creat Clear Calc 57.68, Est GFR (MDRD) Non-Af 52 L, BUN/Creatinine Ratio 12.0, Glucose 119 H, Calcium 8.2 Radiography Diagnostic Testing: Radiology Impression Hip/Pelvis X-Ray 11/10/24 11:55 IMPRESSION: Fluoroscopic guidance was used intraoperatively. Please refer to operative note for further details. Reading Location: [facility] Hip X-Ray 11/10/24 13:25 IMPRESSION: Status post total hip replacement in anatomic position. Reading Location: [facility] Physical Exam Narrative JENNYFER hose in place bilaterally SCDs in place bilaterally Dressing is clean dry and intact Right hip is soft and supple. Dorsiflexion and plantarflexion are performed actively without pain or restriction Sensation tact light touch Neurovascularly intact overall. Negative Homans bilaterally. Const alert, oriented x3 and no apparent distress Assessment & Plan Assessment/Plan (1) Status post total hip replacement, right: PLAN: Status post closed fracture of neck of right femur with direct anterior total hip replacement postop day 1. 1. DVT prophylaxis: Patient will be on aspirin 81 mg twice daily for 4 weeks. Patient was instructed to wear his JENNYFER hose for 2 weeks postoperatively removing at bedtime. 2. Pain medications: Patient was instructed to take Tylenol 1000 mg every 8 hours [id number] taking no more than 3024 hours. Patient was educated he will then be on oxycodone as needed for breakthrough pain. OARRS report was reviewed today. 3. Constipation: Patient was instructed to take senna as instructed until her first bowel movement to decrease risk of impaction following surgery. Patient was instructed if they have not had a bowel movement in 3 days to call our office for reevaluation. 4. Physical therapy: Patient will be weightbearing as tolerated with walker with physical therapy. 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 5. H&H: 11.8/35.1. Vitals are stable and patient is afebrile. 6. We will avoid NSAIDs in this patient due to GFR and elevated creatinine. 7. Incentive spirometry: Patient was encouraged to use incentive spirometer every hour that they are awake for the first week to x-ray of lungs and decrease risk of postoperative lung infection. 8. Patient was educated he can get dressing wet on postop day 1 and remove dressing on postop day 5. As long as incision looks clean dry and intact may leave open to air and shower using gentle soap and water. Patient was educated to avoid doing any soaking or submerging for 6 weeks. Patient was educated to avoid any lotions, salves, oils directly on top of incision for 6 weeks. 9. Patient's primary care team is medicine so he is being managed by medicine team. Appreciate recommendations from medicine team. 10. Follow-up appointment: Patient is to follow-up at [facility] office for 2-week appointment for evaluation of right hip. Patient is okay for discharge from orthopedic standpoint as long as pain maintains adequately controlled, has worked with and is cleared by physical therapy, and is okay per medicine doctor who is primary care team. 11. Disposition: Patient does plan to go home at this point. 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 Patient was educated he will follow-up with our office in 2 weeks for reevaluation of the right hip. Patient will need to have outpatient physical therapy scheduled. Patient will be weightbearing as tolerated with walker. Patient was encouraged to call our office with any questions, concerns, new problems. All questions were answered to best my ability.
[2024-11-11] MEDS: Aspirin 81 MG TAB.CHEW PO (07:53)
--- NOTE | 2024-11-11 09:32 | CASEMGMT ---
ALLEN MEYERS Assessment: Face to Face with pt for initial transition planning/care coordination assessment. ALLEN MEYERS introduced self and role at [facility], pt voices understanding and consents to assessment. Pt is A&O x4 and answers all questions appropriately at this time. Pt sitting up in bed in no distress. Care providers, pharmacy, and demographics verified/updated. Admitting Dx: hip fx Strata Score: 1 PCP:Ricky Specialists:lesa Jacobson Pharmacy: [facility] [employer] Insurance: [employer] Prescription Benefit: yes LNOK: Jessica Pérez, Living Arrangements: Pt lives with in a two story home with 4 steps to enter. Pt reports he was I in ADL/IADLs prior to hospitalization. Pt denies concerns at home. Transportation: Pt drives self and denies concerns with transportation. Pt will transport him until he can drive again. DME:walker, leg lift HHC/SNF: Denies hx of Pt states no concerns with going home at time of dc. Pt states he will do his own therapy. Pt would like meds brought to room. TC to [facility] [employer], spoke with Yesenia, she is aware. Pt states no further concerns/needs. CM to follow. Advised pt to ask CM if any further questions/concerns/needs arise, voices understanding. Pt Goal: Home Plan: Home with performing own PT. Юлия VILLA CM
[2024-11-11] MEDS: Senna/Docusate Sodium 1 Tablet 2 TABLET PO (09:55)
[2024-11-11] MEDS: Famotidine 20 MG Tablet PO (09:55)
--- NOTE | 2024-11-11 11:08 | PHA.DC.MC.R ---
Pharmacy [facility] has performed discharge medication reconciliation and counseling for this patient. 1. ASPIRIN 81MG PO BIDCM X 30 DAYS 2. OXYCODONE 5-10MG PO Q4H PRN PAIN 3. PANTOPRAZOLE 40MG PO DAILY X 30 DAYS The patient's discharge medication list was reviewed for discrepancies and discrepancies were resolved. The patient was counseled on the following discharge medications and changes in medications for homegoing were reviewed. The Reason for Use, instructions for use, and potential side effects were reviewed for all new medications. The patient's questions regarding all of their medications were answered. The patient was able to verbally demonstrate an understanding of their discharge medications. Medications at Discharge Home Medications cholecalciferol (vitamin D3) 125 mcg (5,000 unit) tablet (Vitamin D3) 250 mcg PO QDAY 05/01/24 aspirin 81 mg chewable tablet 81 mg PO BIDCM #0 tabs 11/10/24 oxycodone 5 mg tablet 5 - 10 mg (1 - 2 x 5 mg) PO Q4H PRN PRN Pain Score 4-10 7 days #20 tabs 11/10/24 pantoprazole 40 mg tablet,delayed release (Protonix) 40 mg PO DAILY #30 tabs 25
== END 2024-11-11 13:23 | disposition home or self-care (01) | DRG 522 ==
LOC: ED 23:33 → MS3 11-10 00:13
PROVIDERS: Specialist; Admitting Provider Internal Medicine; Emergency Provider Emergency Medicine; PCP Family Medicine; Visit Provider Internal Medicine
PROC: 0SR90JZ Replacement of Right Hip Joint with Synthetic Substitute, Open Approach (ICD-10-PCS; CPT 27284; principal; 2024-11-10 10:30)
DX: S72.001A Fracture of unspecified part of neck of right femur, initial encounter for closed fracture (principal); F10.90 Alcohol use, unspecified, uncomplicated; S40.011A Contusion of right shoulder, initial encounter; S50.311A Abrasion of right elbow, initial encounter; S70.311A Abrasion, right thigh, initial encounter; M19.90 Unspecified osteoarthritis, unspecified site; S80.211A Abrasion, right knee, initial encounter; S80.212A Abrasion, left knee, initial encounter; V19.3XXA Pedal cyclist (driver) (passenger) injured in unspecified nontraffic accident, initial encounter; Z98.890 Other specified postprocedural states; Z88.2 Allergy status to sulfonamides; Z88.8 Allergy status to other drugs, medicaments and biological substances; Z98.42 Cataract extraction status, left eye; Z96.652 Presence of left artificial knee joint
CPT/HCPCS: 36415; 73030; 73501; 73502; 76000; 80048; 80053; 80076; 82248; 82550; 83735; 84100; 84443; 85025; 85610; 85730; 86850; 86900; 86901; 88304; 88307; 88311; 90715; 93005; 99284; C1776; A4216; J2405

== ENCOUNTER 2024-11-28 10:00 | Outpatient (RCR) | payer OTHER, SELFPAY ==
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
--- NOTE | 2025-02-04 12:52 | HP.PT.NRP ---
Patient Information Patient Information: LOYDA GONZALEZ was seen in my office for initial evaluation on 11/14/24. The following Plan of Care was established for this patient: POC Established Initial Frequency: 2-3x /Week Initial Duration: 4-6 Weeks Anticipated Interventions Patient/Client Instruction: Educate patient on: Condition and Plan of Care For the Purpose of:: To decrease pain, To increase ROM, To improve muscle performance and motor function, To improve ability to perform ADL's, To increase tolerance to activity/condition/position, To improve ability of physical actions for home/community/work/leisure, To improve gait and locomotor functions, To improve health of tissue, To decrease soft tissue restriction, To increase flexibility/ROM, To improve endurance, To improve balance and To improve tolerance to ADL's Therapeutic Exercise to Include: Strength training, Endurance training, Balance training, Gait and locomotor training, Passive ROM and Active ROM For the Purpose of:: To decrease pain, To increase ROM, To improve muscle performance and motor function, To improve ability to perform ADL's, To increase tolerance to activity/condition/position, To improve ability of physical actions for home/community/work/leisure, To improve gait and locomotor functions, To improve health of tissue, To decrease soft tissue restriction, To improve balance and To improve tolerance to ADL's Manual Therapy Techniques to Include: Soft tissue mobilization Comment: LEG For the Purpose of:: To decrease pain, To decrease swelling/inflammation, To increase ROM, To improve nutrient delivery to tissue, To increase oxygenation perfusion, To improve health of tissue and To decrease soft tissue restriction TENS: Yes IF ES: Yes Cryotherapy (ice pack, ice massage): Yes Vasopneumatic device: Yes For the Purpose of:: To decrease pain, To increase ROM, To improve health of tissue, To decrease soft tissue restriction, To increase flexibility/ROM and To improve tolerance to ADL's Last Seen Last Seen: This patient was last seen in our office . Pertinent comments regarding their Physical therapy will appear below: Patient was seen for PT for KASSIDY right and d/c to gym program and F/U with MD At this point I will be discontinuing this patient from physical therapy. I would be happy to see this patient again in the future if found appropriate by the physician. Thank you! Suleman Mayer, PT, Cert MDT, OCS Balance/Gait/Functional tests Balance/Special Test Scores Lower Extremity Functional Score: 9 TUG Test Time Seconds: 32.1 Tug Test: >30sec.=impaired mobility WOMAC Total Score: 82 WOMAC Percentage: 14.5900
== END 2024-11-28 19:00 | disposition home or self-care (01) ==
LOC: PT 10:00
PROVIDERS: PCP Family Medicine; Referring Provider Specialist; Visit Provider Specialist
DX: Z96.641 Presence of right artificial hip joint (principal); Z47.1 Aftercare following joint replacement surgery
CPT/HCPCS: 97014; 97110; 97140; 97162; G0283

== ENCOUNTER → 2024-11-28 | Outpatient (CLI) | payer OTHER, SELFPAY ==
[2024-11-28 15:56] LABS: Hemoglobin A1c 5.6 % (<=5.6)
[2024-11-28 16:07] LABS: ALB/GLOB Ratio 1.3 RATIO (0.9-2.4); AST(SGOT) 27 U/L (<=37); Alanine Aminotransfer ALT/SGPT 26 U/L (<=46); Albumin, Serum 3.9 g/dL (3.4-4.8); Alkaline Phosphatase 131 U/L (40-129); Anion Gap 11 (5-15); BUN 21 mg/dL (4-19); BUN/Creat Ratio 17.1 RATIO (10-20); CRP 6.09 mg/L (0.0-3.0); Calcium,Total 9.2 mg/dL (7.6-11.0); Carbon Dioxide 26.4 mmol/L (21.0-32.0); Chloride 101 mmol/L (98-108); Creatinine, Serum 1.21 mg/dL (0.70-1.20); EST Glomerular Filtration Rate 68 (>60); Glucose 105 mg/dL (70-99); Potassium 4.5 mmol/L (3.3-5.1); Protein, Total 6.9 g/dL (5.9-8.4); Sodium Level 139 mmol/L (133-145); Total Bilirubin 0.69 mg/dL (0.00-1.30)
[2024-11-28 16:31] LABS: Absolute Neutrophil Count 5.2 X10^3/uL (2.0-7.7); Basophil# 0.06 X10^3/uL; Basophil% 0.7 % (0-1); Eosinophil# 0.35 X10^3/uL; Eosinophils% 4.3 % (0-5); Hematocrit 41.6 % (40-54); Hemoglobin 13.6 g/dL (13.0-16.5); Mean Corp Hgb Conc 32.7 g/dL (32-36); Mean Corpuscular Hgb 29.6 pg (27.0-32.0); Mean Corpuscular Volume 90.4 fL (80-94); Mean Platelet Vol. 9.4 fl (6.2-12.0); Monocyte# 0.71 X10^3/uL; Monocyte% 8.7 % (0-10); NRBC Flagged by Analyzer 0 % (0-5); Neutrophil # 5.21 X10^3/uL (2.7-7.7); Neutrophil % 63.7 % (47-70); Platelet Count 483 K/mm3 (150-450); RBC Distribution Width CV 12.4 % (11.6-14.6); White Blood Count 8.2 K/mm3 (4.4-11.0)
[2024-11-28 16:36] LABS: Erythrocyte Sedimentation Rate 6 mm/hr (0-20)
--- OUTSIDE RECORDS SUMMARY | 2024-11-28 21:12 | XMS RPT_ITS | CCD ---
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 consciousness. Patient complains of pain in his right hip and right shoulder. Patient also admits to abrasions over his right thigh, right elbow and forearm. Patient denies any paresthesias or weakness. Patient drove home from [place] today. Patient states his pain is worse with any movement. Patient denies any paresthesias or weakness. Patient is unsure of his last tetanus. Tetanus Immunization: Unknown [facility] Medical History Wears glasses Alcohol use Arthritis Non-smoker Melanoma Basal cell carcinoma Home Medications ???Medication ???Instructions ???Recorded ???Last Taken ???Type cholecalciferol (vitamin D3) 125 250 mcg PO QDAY 05/01/24 05/02/24 History mcg (5,000 unit) tablet (Vitamin D3) Allergy/AdvReac Type Severity Reaction Status Date / Time sulfamethoxazole (From Allergy Rash Verified 11/09/24 22:05 Bactrim) trimethoprim (From Bactrim) Allergy Rash Verified 11/09/24 22:05 Family History Mother Crohn's disease Basal cell carcinoma Father Diabetes Basal cell carcinoma Melanoma Surgical History History of medial meniscus repair of left knee Hx of left cataract extraction Hx of total knee arthroplasty Hx of tonsillectomy History of Achilles tendon repair History of partial knee replacement Social History household members: spouse number of children: 2 current occupational status: employed 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 Smoking Status: Never smoker alcohol intake: current alcohol intake frequency: a few times a month substance use type: does not use what type of physical activity do you participate in: running and bicycling ROS ROS ED Constitutional Constitutional ED: Denies chills or fever(s) Eyes Eyes: Denies blurry vision or change in vision ENT ENT ED: Denies rhinorrhea or sore throat Cardiovascular Cardiovascular: Denies chest pain or palpitations Respiratory/Chest Respiratory/Chest: Denies cough or dyspnea Gastrointestinal Gastrointestinal: Denies nausea or vomiting Genitourinary Genitourinary ED: Denies dysuria or hematuria Musculoskeletal Musculoskeletal: Denies back pain or neck pain Integumentary Reports Abrasions; Denies abscess or rash Neurologic Neurologic: Denies headache(s) or weakness Allergic/Immunologi c Allergic/Immunologi c ED: Denies mouth swelling or urticaria EXAM Physical Exam Const Vital Signs: 11/09/24 22:05 11/09/24 22:11 11/09/24 22:22 Temperature 97.5 F L Temperature Source Temporal Pulse Rate 50 L 62 Respiratory Rate 18 16 Respiratory Effort Non-Labored Respiratory Depth Normal Respiratory Pattern Normal Blood Pressure 133/75 H 153/81 H Blood Pressure Mean 94 105 Pulse Ox 100 99 Oxygen Delivery Method Room Air Room Air Room Air 11/09/24 23:11 11/09/24 23:32 Temperature 98.6 F 98.1 F Temperature Source Oral Pulse Rate 63 60 Respiratory Rate 16 16 Respiratory Effort Respiratory Depth Respiratory Pattern Blood Pressure 144/70 H 141/73 H Blood Pressure Mean 94 95 Pulse Ox 97 96 Oxygen Delivery Method Room Air Positive well nourished and well developed General Appearance ED: well developed and NAD HEENT atraumatic Neck full ROM Resp normal respiratory effort and clear to auscultation bilaterally Cardio regular rhythm Rate: regular rate GI non-tender and non-distended Palpation: soft Extremity Extremity Narrative: There is tenderness over the an (more content not included)... Normal [facility] Eosinophil percentageOrdered By: Neftali Guzman on 11-09-2024 Eosinophils/100 WBC (Bld) 2.4 % 0-5 [facility] Erythrocyte distribution wid th ratioOrdered By: Neftali Guzman on 11-09-2024 Erythrocyte distribution width (RBC) [Ratio] 12.4 % 11.6-14.6 [facility] Erythrocyte distribution wid th standard deviationOrdered By: Neftali Guzman on 11-09-2024 Erythrocyte distribution width (RBC) [Ratio] 40.8 fl 35.1-43.9 [facility] [place] [facility] Glomerular filtration rate ( GFR) estimation/1.73 sq m using serum, plasma, or whole bOrdered By: Neftali Guzman on 11-09-2024 GFR/1.73 sq M.predicted among non-blacks MDRD (S/P/Bld) [Vol rate/Area] 58 mL/min/{1.73_m2} Low >60 [facility] Comment on above: mL/min/1.73m2 CKD-EP I Creatinine Equation (2020) HIP, UNI W/ Pelvis 2-3 Views on 11-09-2024 HIP, UNI W/ Pelvis 2-3 Views [facility] Imaging Services [address] [place], [place] [address] HIP, UNI W/ Pelvis 2-3 Views MR#: [id number] Acct: [id number] Name: KEVEN PÉREZ Rep #: [id number] : 1960 M 63 From: Raymundo pressley MD PCP: Dr. Bernardo García MD Status: REG ER Study: HIP, UNI W/ Pelvis 2-3 Views Date of Exam: Exam# [id number] Ordering Dr: Neftali Guzman DO PROCEDURE: HIP, UNI W/ PELVIS 2-3 VIEWS 11/09/2024 REASON FOR EXAM: INJURY/PAIN TECHNIQUE: Three views of the right hip COMPARISON: None FINDINGS: Nondisplaced impacted fracture right femoral neck. Additional lucency along the posterior acetabulum, also concerning for a fracture. Mild bilateral osteoarthritis. No suspicious lytic or blastic lesions. SI joints are unremarkable. RAD/HIP, UNI W/ Pelvis 2-3 Views IMPRESSION: Nondisplaced impacted right femoral neck fracture and nondisplaced fracture posterior acetabulum. [facility] CC: Dr. Bernardo García MD; Dr. Neftali Guzman DO Green Chain Off Bearer: Signed Normal [facility] Hematocrit Auto (Bld) [Volum e fraction]Ordered By: Neftali Guzman on 11-09-2024 Hematocrit (Bld) [Volume fraction] 45.5 % 40-54 [facility] Hemoglobin measurementOrdere d By: Neftali Guzman on 11-09-2024 Hemoglobin (Bld) [Mass/Vol] 15.5 g/dL 13.0-16.5 [facility] Immature granulocytes/100 WB C Auto (Bld)Ordered By: Neftali Guzman on 11-09-2024 Immature granulocytes/100 WBC (Bld) 0.400 % 0.0-0.9 [facility] Comment on above: IG% - Immature Granu locytes (promyelocytes, myelocytes and metamyelocytes) > 1% indicates that a LEFT SHIFT is Present. International normalized rat io (INR) calculationOrdered By: Neftali Guzman on 11-09-2024 INR Coag (Bld) [Relative time] 1.1 {INR} [facility] MCV (mean corpuscular volume ) determinationOrdered By: Neftali Guzman on 11-09-2024 MCV (RBC) [Entitic vol] 88.7 fL 80-94 [facility] Mean corpuscular hemoglobin (MCH) determinationOrdered By: Neftali Guzman on 11-09-2024 MCH (RBC) [Entitic mass] 30.2 pg 27.0-32.0 [facility] Mean corpuscular hemoglobin concentration (MCHC) determinationOrdered By: Neftali Guzman on 11-09-2024 MCHC (RBC) [Mass/Vol] 34.1 g/dL 32-36 [facility] Mean platelet volume determi nationOrdered By: Neftali Guzman on 11-09-2024 Platelet mean volume (Bld) [Entitic vol] 10.4 fL 6.2-12.0 [facility] Monocyte percentageOrdered B y: Neftali Guzman on 11-09-2024 Monocytes/100 WBC (Bld) 9.0 % 0-10 [facility] Neutrophil percentageOrdered By: Neftali Guzman on 11-09-2024 Neutrophils/100 WBC (Bld) 64.5 % 47-70 [facility] Nucleated red blood cell per centageOrdered By: Neftali Guzman on 11-09-2024 Nucleated RBC/100 WBC (Bld) [Ratio] 0 % 0-5 [facility] Partial Thromboplast Timeon 11-09-2024 aPTT Coag (Bld) [Time] 24.4 s Normal 24.1-36.2 [facility] Comment on above: Performed By: #### L 100.0100, L300.3900, L300.4310, L500.2500 ####[facility] [address] [place], [address] Platelet countOrdered By: Aiden Guzman on 11-09-2024 Platelets (Bld) [#/Vol] 242 10*3/uL 150-450 [facility] Potassium measurement (mass/ volume)Ordered By: Neftali Guzman on 11-09-2024 Potassium (Unsp spec) [Mass/Vol] 3.7 mmol/L 3.3-5.1 [facility] Prothrombin Time w/INRon INR Coag (PPP) [Relative time] 1.1 {INR} Normal [facility] Comment on above: Performed By: #### L 100.0100, L300.3900, L300.4310, L500.2500 ####[facility] [address] [place], [place], [id number] PT Coag (PPP) [Time] 14.0 s Normal 11.7-14.9 [facility] Comment on above: Performed By: #### L 100.0100, L300.3900, L300.4310, L500.2500 ####[facility] [address] [place], [place], [id number] Prothrombin timeOrdered By: Neftali Guzman on 11-09-2024 PT Coag (PPP) [Time] 14.0 s 11.7-14.9 [facility] RBC Auto (Bld) [#/Vol]Ordere d By: Neftali Guzman on 11-09-2024 RBC (Bld) [#/Vol] 5.13 10*6/uL 4.6-6.2 [facility] Serum creatinine measurement (mass/volume)Ordered By: Neftali uGzman on 11-09-2024 Creatinine [Mass/Vol] 1.39 mg/dL High 0.70-1.20 [facility] Serum glucose measurement (m ass/volume)Ordered By: Neftali Guzman on 11-09-2024 Glucose [Mass/Vol] 105 mg/dL High 70-99 [place] Serum or plasma calcium vianey urement (mass/volume)Ordered By: Neftali Guzman on 11-09-2024 Calcium [Mass/Vol] 9.7 mg/dL 7.6-11.0 [place] Serum or plasma creatine kin ase activityOrdered By: Avinash Delacruz on 11-09-2024 CK [Catalytic activity/Vol] 283 U/L High 24-195 [facility] Serum or plasma urea nitroge n measurement (mass/volume)Ordered By: Neftali Guzman on 11-09-2024 Urea nitrogen [Mass/Vol] 16 mg/dL 4-19 [facility] Shoulder min 2 Viewson 11-09 Shoulder min 2 Views [facility] Imaging Services [address] [place], [place] [address] Shoulder min 2 Views MR#: [id number] Acct: [id number] Name: KEVEN PÉREZ Rep #: [id number] : 1960 M 63 From: Raymundo pressley MD PCP: Dr. Bernardo García MD Status: REG ER Study: Shoulder min 2 Views Date of Exam: 11/09/24 Exam# [id number] Ordering Dr: Neftali Guzman DO PROCEDURE: SHOULDER MIN 2 VIEWS 11/09/2024 REASON FOR EXAM: INJURY/PAIN TECHNIQUE: Two views of the right shoulder COMPARISON: None FINDINGS: No acute fracture or dislocation. Mild degenerative changes of the glenohumeral and acromioclavicular joint. Acromiohumeral interval is maintained. Imaged lung ash are clear RAD/Shoulder min 2 Views IMPRESSION: No acute fracture or dislocation. [facility] CC: Dr. Bernardo García MD; Dr. Neftali Guzman DO Green Chain Off Bearer: Signed Normal [facility] Sodium levelOrdered By: Neftali Guzman on 11-09-2024 Sodium [Moles/Vol] 138 mmol/L 133-145 [place] White blood cell (WBC) count Ordered By: Neftali Guzman on 11-09-2024 WBC (Bld) [#/Vol] 10.6 10*3/uL 4.4-11.0 [facility] Colonoscopy Reporton 024 Colonoscopy Report [facility] Medical Records Department [address] [place] [address] Colonoscopy Report MR#: [id number] Acct: [id number] Name: KEVEN PÉREZ Rep #: [id number] : 1960 63 From: Lon Hammond DO PCP: Dr. Bernardo García MD Status:[facility] Patient Name: Keven Pérez Procedure Date: 05/03/2024 6:18 AM Date of : 1960 Age: 63 Procedure: Colonoscopy Indications: Screening for colorectal malignant neoplasm Providers: Lon Hammond DO Referring MD: Naga García Medicines: Monitored Anesthesia Care Patient Profile: This is a 63 year old male. Refer to note in patient chart for documentation of history and physical. Last Colonoscopy: date unknown. Unable to locate last colonoscopy report. Complications: No immediate complications. Procedure: Pre-Anesthesia Assessment: - Prior to the procedure, a History and Physical was performed, and patient medications and allergies were reviewed. The patient is competent. The risks and benefits of the procedure and the sedation options and risks were discussed with the patient. All questions were answered and informed consent was obtained. Patient identification and proposed procedure were verified by the physician in the pre-procedure area. Mental Status Examination: alert and oriented. Airway Examination: normal oropharyngeal airway and neck mobility. Respiratory Examination: clear to auscultation. CV Examination: normal. Prophylactic Antibiotics: The patient does not require prophylactic antibiotics. Prior Anticoagulants: The patient has taken no anticoagulant or antiplatelet agents except for NSAID medication. ASA Grade Assessment: II - A patient with mild systemic disease. After reviewing the risks and benefits, the patient was deemed in satisfactory condition to undergo the procedure. The anesthesia plan was to use monitored anesthesia care (MAC). Immediately prior to administration of medications, the patient was re-assessed for adequacy to receive sedatives. The heart rate, respiratory rate, oxygen saturations, blood pressure, adequacy of pulmonary ventilation, and response to care were monitored throughout the procedure. The physical status of the patient was re-assessed after the procedure. After I obtained informed consent, the scope was passed under direct vision. Throughout the procedure, the patient's blood pressure, pulse, and oxygen saturations were monitored continuously. The Colonoscope was introduced through the anus and advanced to the terminal ileum. The colonoscopy was performed without difficulty. The patient tolerated the procedure well. The quality of the bowel preparation was adequate. The terminal ileum, ileocecal valve, appendiceal orifice, and rectum were photographed. Scope In: 6:55:05 AM Scope Withdrawal Time 0 hours 9 minutes 48 seconds Scope Out: 7:06:32 AM Total Procedure Duration Time 0 hours 11 minutes 27 seconds Findings: The perianal and digital rectal examinations were normal. A 6 mm polyp was found in the cecum. The polyp was sessile. The polyp was removed with a hot snare. Resection and retrieval were complete. Verification of patient identification for the specimen was done. Estimated blood loss was minimal. A few small-mouthed diverticula were found in the recto-sigmoid colon. The exam was otherwise without abnormality on direct and retroflexion views. Impression: - One 6 mm polyp in the cecum, removed with a hot snare. Resected and retrieved. - Diverticulosis in the recto-sigmoid colon. - The examination was otherwise normal on direct and retroflexion views. Recommendation: - Discharge patient to home. - Resume previous diet. - Continue present medications. - Await pathology results. - Repeat colonoscopy in 5 years for surveillance. Procedure Code(s): --- Professional --- 79526, Colonoscopy, flexible; with removal of tumor(s), polyp(s), or other lesion(s) by snare technique CPT copyright 2021 [employer]. All rights reserved. The codes documented in this report are preliminary and upon bronc buster review may be revised to meet current compliance requirements. Lon Hammond DO 05/03/2024 7:14:17 AM This report has been signed electronically. Number of Addenda: 0 Note Initiated On: 05/03/2024 6:18 AM 05/03/24714 Date Lon Lionignaiden Signature: Date (if indicated) CC: Dr. Bernardo García MD; Lon Hammond DO Date Dictated: 05/03/24617 Date Transcribed: Green Chain Off Bearer: CRISTAL Signed [facility] MR/POSTOP.[facility] 05-03-2024 MR/POSTOP.[facility] Medical Records Department [address] [place] [address] Anesthesia Postop Eval I 05/03/24716 MR#: [id number] Acct: [id number] Name: KEVEN PÉREZ Rep #: [id number] : 1960 63 From: Herrera Rincon PCP: Dr. Bernardo García MD Status:REG [facility] Y Race: C Location: [place] [address] Anesthesia: Postop Eval I Current Vital Signs Temperature: 98.1 F Pulse Rate: 72 Blood Pressure: 102/66 Respiratory Rate: 16 Pulse Ox: 98 Oxygen Delivery Method: Room Air Assessment Airway patent: Yes Spontaneous unlabored respirations: Yes Mental status: Awake and Calm nausea: No Vomiting: No Anesthesia Complication: No Fluid Hydration Crystalloid volume administer (ml): 50 Total IV fluid infused: 50 Progress Note Anesthesia document: Postop Eval 1 completed: Yes 05/03/24717 Date Herrera Coyle Signature: Date CC: Signed Normal [facility] MR/[id number] 05-03-2024 [facility] Medical Records Department [address] [facility] [place] [address] Anesthesia Postop Eval II 05/03/24 1658 MR#: [id number] Acct: [id number] Name: KEVEN PÉREZ Rep #: [id number] : 1960 63 From: Mike Mcconnell MD PCP: Dr. Bernardo aGrcía MD Status:[facility] Y Race: C Location: EN Anesthesia Postop Eval I Sum Postop Eval Completion status Anesthesia document: Postop Eval 1 completed: Yes Anesthesia Postop Eval I Summary Anesthesia Postop Eval I Summary: Anesthesia Postop Eval I: Assessment Summary Airway patent Yes 05/03/24 07:18 AA.TBEND Spontaneous unlabored Yes 05/03/24 07:18 AA.TBEND respirations Mental status Awake,Calm 05/03/24 07:18 AA.TBEND nausea No 05/03/24 07:18 AA.TBEND Vomiting No 05/03/24 07:18 AA.TBEND Anesthesia Postop Eval I: Fluid Summary Crystalloid volume administer 50 05/03/24 07:18 AA.TBEND (ml) Colloids volume administered ( ml) Blood Product volume administered (ml) Total IV fluid infused 50 05/03/24 07:18 AA.TBEND Anesthesia Postop Eval I: Summary Notes Anesthesia Complication No 05/03/24 07:18 AA.TBEND Anesthesia Complication Comment: Post-operative progress note Anesthesia: Postop Eval II Evaluation Mental status: Awake and Calm Pain Level: 0 nausea: No Vomiting: No Complications Anesthesia Complication: No 05/03/24 170 Date Mike Coyle Signature: Date CC: Signed Normal [facility] Surgery Specimen Level Ernie 05-03-2024 Surgery Specimen Level IV Patient Age/Sex Location Account Attending Physician KEVEN PÉREZ 63/M EN [id number] Lon Hammond DO Specimen: [id number] Received: 05/03/24 Status: ROBIN Rivera Num: [id number] Spec Type: COLON BX Subm Dr: Lon Friend, DO HEADER OPERATION: Colonoscopy, polypectomy PRE-OP DIAGNOSIS: Encounter for screening malignant neoplasm of colon TISSUE SUBMITTED: Cecal polyp MICROSCOPIC DIAGNOSIS Cecal polyp, polypectomy: Tubular adenoma with cautery artifacts. Fragments of fecal material. [facility] 05/07/2024 MICROSCOPIC DESCRIPTION Slides are reviewed. GROSS DESCRIPTION Received in fixative is one container labeled with the patient's name and designated Cecal polyp. The specimen consists of multiple irregular fragments of light garcia soft tissue mixed with fecal material that in aggregate measure 2.5 x 0.2 x 0.1 cm. The specimen is totally submitted in one cassette. [facility] 05/06/2024 TC:1 CPT:73902 Patient Age/Sex Location Account Attending Physician KEVEN PÉREZ/Michelle EN [id number] Lon Hammond DO Signed (signatlisa e on file) Dr. Tony Raygoza MD 05/07/24 1200 Normal [facility] Comment on above: Performed By: #### P SUIV ####[facility] [address] [place], [place], [address] Testosterone, Total / Freeon 03-19-2024 TESTOSTER,FREE 11.58 ng/dL Normal 5.00-21.00 [facility] Comment on above: Order Comment: Order Date: 04/13/23Order Info: 0024-1 - TESTFN Performed By: #### L 3100.5310 ####[facility] [address] [place], [place], [address] TESTOSTERONE, T 308 ng/dL Normal 264-536 [facility] Comment on above: Order Comment: Order Date: 04/13/23Order Info: 0024-1 - TESTFN Result Comment: Adul t male reference interval is based on a population of healthy nonobese males (BMI <30) between 19 and 39 years old. [place] et.al. JCEM 2017,102;8590-4506. PMID: [id number]. Performed By: #### L 3100.5310 ####[facility] [address] [place], [place], [address] TESTOSTERONE,%F 3.76 Normal 1.50-4.20 [facility] Comment on above: Order Comment: Order Date: 04/13/23Order Info: 0024-1 - TESTFN Result Comment: Perf ormed at: - [facility] [id number] Showroom Consultant: Cristian Waller PhD, Phone: [phone] Performed at: [facility] [address] [id number] Showroom Consultant: Maximo Ferrari MD, Phone: [phone] Performed By: #### L 3100.5310 ####[facility] [address] [place], [address] CBC, Employeeon 03-11-2024 Absolute Lymph 1.46 X10 3/uL Normal 0.83-4.51 [facility] Comment on above: Performed By: #### L 100.0200, L500.2900 ####[facility] [address] [place], [address] Absolute Neut 3.4 X10 3/uL Normal 2.0-7.7 [facility] Comment on above: Performed By: #### L 100.0200, L500.2900 ####[facility] [address] [place], [address] Basophils/100 WBC (Bld) 0.4 % Normal 0-1 [facility] Comment on above: Performed By: #### L 100.0200, L500.2900 ####[facility] [address] [place], [address] Eosinophils/100 WBC (Bld) 3.7 % Normal 0-5 [facility] Comment on above: Performed By: #### L 100.0200, L500.2900 ####[facility] [address] [place], [address] Erythrocyte distribution width (RBC) [Ratio] 12.3 % Normal 11.6-14.6 [facility] Comment on above: Performed By: #### L 100.0200, L500.2900 ####[facility] [address] [place], [address] Hematocrit (Bld) [Volume fraction] 44.2 % Normal 40-54 [facility] Comment on above: Performed By: #### L 100.0200, L500.2900 ####[facility] [address] [place], [address] Hemoglobin (Bld) [Mass/Vol] 14.6 g/dL Normal 13.0-16.5 [facility] Comment on above: Performed By: #### L 100.0200, L500.2900 ####[facility] [address] [place], [address] Lymphocytes/100 WBC (Bld) 25.6 % Normal 19-41 [facility] Comment on above: Performed By: #### L 100.0200, L500.2900 ####[facility] [address] [place], [address] MCH (RBC) [Entitic mass] 29.1 pg Normal 27.0-32.0 [facility] Comment on above: Performed By: #### L 100.0200, L500.2900 ####[facility] [address] [place], [address] MCHC (RBC) [Mass/Vol] 33.0 g/dL Normal 32-36 [facility] Comment on above: Performed By: #### L 100.0200, L500.2900 ####[facility] [address] [place], [address] MCV (RBC) [Entitic vol] 88.0 fL Normal 80-94 [facility] Comment on above: Performed By: #### L 100.0200, L500.2900 ####[facility] [address] [place], [address] Monocytes/100 WBC (Bld) 10.5 % High 0-10 [facility] Comment on above: Performed By: #### L 100.0200, L500.2900 ####[facility] [address] [place], [address] Neutrophils/100 WBC (Bld) 59.4 % Normal 47-70 [facility] Comment on above: Performed By: #### L 100.0200, L500.2900 ####[facility] [address] [place], [address] NRBC # 0.00 10 3/uL Normal 0-5 [facility] Comment on above: Performed By: #### L 100.0200, L500.2900 ####[facility] [address] [place], [address] Nucleated RBC (Bld) [#/Vol] 0 10*3/uL Normal 0-5 [facility] Comment on above: Performed By: #### L 100.0200, L500.2900 ####[facility] [address] [place], [address] Platelet mean volume (Bld) [Entitic vol] 9.9 fL Normal 6.2-12.0 [facility] Comment on above: Performed By: #### L 100.0200, L500.2900 ####[facility] [address] [place], [address] Platelets (Bld) [#/Vol] 255 10*3/uL Normal 150-450 [facility] Comment on above: Performed By: #### L 100.0200, L500.2900 ####[facility] [address] [place], [address] RBC (Bld) [#/Vol] 5.02 10*6/uL Normal 4.6-6.2 [facility] Comment on above: Performed By: #### L 100.0200, L500.2900 ####[facility] [address] [place], [address] RDW SD 39.9 fl Normal 35.1-43.9 [facility] Comment on above: Performed By: #### L 100.0200, L500.2900 ####[facility] [address] [place], [address] WBC (Bld) [#/Vol] 5.7 10*3/uL Normal 4.4-11.0 [place] Comment on above: Performed By: #### L 100.0200, L500.2900 ####[facility] [address] [place], [address] Employee Profileon 4 Albumin [Mass/Vol] 3.5 g/dL Normal 3.2-5.0 [place] Comment on above: Order Comment: Order Date: 04/13/23Order Info: [id number] - BIDTIOrder Info: 2857-1 - PSA Performed By: #### L 100.0200, L500.2900 ####[facility] [address] [place], [address] Albumin/Globulin [Mass ratio] 1.1 {ratio} Normal 0.9-2.4 [facility] Comment on above: Order Comment: Order Date: 04/13/23Order Info: [id number] - BIDTIOrder Info: 2857-1 - PSA Performed By: #### L 100.0200, L500.2900 ####[facility] [address] [place], [address] ALK P 87 U/L Normal 45-117 [facility] Comment on above: Order Comment: Order Date: 04/13/23Order Info: [id number] - BIDTIOrder Info: 2857-1 - PSA Performed By: #### L 100.0200, L500.2900 ####[facility] [address] [place], [address] ALT [Catalytic activity/Vol] 34 U/L Normal 16-61 [facility] Comment on above: Order Comment: Order Date: 04/13/23Order Info: [id number] - BIDTIOrder Info: 28512-24 - PSA Performed By: #### L 100.0200, L500.2900 ####[facility] [address] [place], [address] AST [Catalytic activity/Vol] 22 U/L Normal 15-37 [facility] Comment on above: Order Comment: Order Date: 04/13/23Order Info: [id number] - BIDTIOrder Info: 2856-06 - PSA Performed By: #### L 100.0200, L500.2900 ####[facility] [address] [place], [address] Bilirubin [Mass/Vol] 2.00 mg/dL High 0.20-1.00 [facility] Comment on above: Order Comment: Order Date: 04/13/23Order Info: [id number] - BIDTIOrder Info: 2856-06 - PSA Result Comment: For patients on eltrombopag therapy, use of Dimension Delcambre TBIL is not recommended. Performed By: #### L 100.0200, L500.2900 ####[facility] [address] [place], [address] Bilirubin.direct [Mass/Vol] 0.33 mg/dL High 0.00-0.30 [facility] Comment on above: Order Comment: Order Date: 04/13/23Order Info: [id number] - BIDTIOrder Info: 28512-24 - PSA Performed By: #### L 100.0200, L500.2900 ####[facility] [address] [place], [address] BUN/CRE 15.3 RATIO Normal 10-20 [facility] Comment on above: Order Comment: Order Date: 04/13/23Order Info: [id number] - BIDTIOrder Info: 2857-1 - PSA Performed By: #### L 100.0200, L500.2900 ####[facility] [address] [place], [address] CA,Total 9.4 mg/dL Normal 8.5-10.1 [facility] Comment on above: Order Comment: Order Date: 04/13/23Order Info: [id number] - BIDTIOrder Info: 2856-06 - PSA Performed By: #### L 100.0200, L500.2900 ####[facility] [address] [place], [address] Chloride [Moles/Vol] 106 mmol/L Normal 98-107 [facility] Comment on above: Order Comment: Order Date: 04/13/23Order Info: [id number] - BIDTIOrder Info: 2856-06 - PSA Performed By: #### L 100.0200, L500.2900 ####[facility] [address] [place], [address] CHOL:HDL 2.90 Normal [facility] Comment on above: Order Comment: Order Date: 04/13/23Order Info: [id number] - BIDTIOrder Info: 28512-24 - PSA Performed By: #### L 100.0200, L500.2900 ####[facility] [address] [place], [address] Cholesterol [Mass/Vol] 160 mg/dL Normal 200 [facility] Comment on above: Order Comment: Order Date: 04/13/23Order Info: [id number] - BIDTIOrder Info: 2856-06 - PSA Result Comment: <200 mg/dL Desirable 200-240 mg/dL Borderline >240 mg/dL High Risk Performed By: #### L 100.0200, L500.2900 ####[facility] [address] [place], [address] Cholesterol in HDL [Mass/Vol] 56 mg/dL Normal [facility] Comment on above: Order Comment: Order Date: 04/13/23Order Info: [id number] - BIDTIOrder Info: 2857-1 - PSA Result Comment: The drugs N-Acetylcysteine and Metamizole may falsely depress this assay. Reference Range HDL <40 mg/dL Low HDL Cholesterol HDL >or= 60 mg/dL High HDL Cholesterol Performed By: #### L 100.0200, L500.2900 ####[facility] [address] [place], [address] Cholesterol in LDL [Mass/Vol] 80 mg/dL Normal 0-130 [facility] Comment on above: Order Comment: Order Date: 04/13/23Order Info: [id number] - BIDTIOrder Info: 2857-1 - PSA Performed By: #### L 100.0200, L500.2900 ####[facility] [address] [place], [address] Cholesterol in VLDL [Mass/Vol] 24 mg/dL Normal 5-40 [facility] Comment on above: Order Comment: Order Date: 04/13/23Order Info: [id number] - BIDTIOrder Info: 2857-1 - PSA Performed By: #### L 100.0200, L500.2900 ####[facility] [address] [place], [address] CO2 [Moles/Vol] 27.0 mmol/L Normal 21.0-32.0 [facility] Comment on above: Order Comment: Order Date: 04/13/23Order Info: [id number] - BIDTIOrder Info: 2857-1 - PSA Performed By: #### L 100.0200, L500.2900 ####[facility] [address] [place], [address] Creatinine [Mass/Vol] 1.31 mg/dL High 0.70-1.30 [facility] Comment on above: Order Comment: Order Date: 04/13/23Order Info: [id number] - BIDTIOrder Info: 2857-1 - PSA Result Comment: The validity of the calculated GFR GFRAA in patients over 70 years has not been determined. Clinical correlation is essential. Performed By: #### L 100.0200, L500.2900 ####[facility] [address] [place], [address] EST GFR - AA 72 mL/min Normal >60 [facility] Comment on above: Order Comment: Order Date: 04/13/23Order Info: [id number] - BIDTIOrder Info: 2857-1 - PSA Result Comment: Afri can Togolese GFR Calc Performed By: #### L 100.0200, L500.2900 ####[facility] [address] [place], [address] GAP 7 Normal 5-15 [facility] Comment on above: Order Comment: Order Date: 04/13/23Order Info: [id number] - BIDTIOrder Info: 2857-1 - PSA Performed By: #### L 100.0200, L500.2900 ####[facility] [address] [place], [address] GFR/1.73 sq M.predicted among non-blacks MDRD (S/P/Bld) [Vol rate/Area] 59 mL/min/{1.73_m2} Low >60 [facility] Comment on above: Order Comment: Order Date: 04/13/23Order Info: [id number] - BIDTIOrder Info: 2857-1 - PSA Result Comment: Non- GFR Calc Performed By: #### L 100.0200, L500.2900 ####[facility] [address] [place], [address] Globulin (S) [Mass/Vol] 3.3 g/dL Normal 2.2-4.2 [facility] Comment on above: Order Comment: Order Date: 04/13/23Order Info: [id number] - BIDTIOrder Info: 2857-1 - PSA Performed By: #### L 100.0200, L500.2900 ####[facility] [address] [place], [address] Glucose [Mass/Vol] 95 mg/dL Normal 74-106 [place] Comment on above: Order Comment: Order Date: 04/13/23Order Info: [id number] - BIDTIOrder Info: 7-1 - PSA Performed By: #### L 100.0200, L500.2900 ####[facility] [address] [place], [address] LDH 172 U/L Normal 87-241 [facility] Comment on above: Order Comment: Order Date: 04/13/23Order Info: [id number] - BIDTIOrder Info: 2856-1 - PSA Performed By: #### L 100.0200, L500.2900 ####[facility] [address] [place], [address] Phosphate [Mass/Vol] 2.3 mg/dL Low 2.5-4.9 [facility] Comment on above: Order Comment: Order Date: 04/13/23Order Info: [id number] - BIDTIOrder Info: 2856- - PSA Performed By: #### L 100.0200, L500.2900 ####[facility] [address] [place], [address] Potassium [Moles/Vol] 4.2 mmol/L Normal 3.5-5.1 [facility] Comment on above: Order Comment: Order Date: 04/13/23Order Info: [id number] - BIDTIOrder Info: 2856-1 - PSA Performed By: #### L 100.0200, L500.2900 ####[facility] [address] [place], [address] Sodium [Moles/Vol] 140 mmol/L Normal 136-145 [place] Comment on above: Order Comment: Order Date: 04/13/23Order Info: [id number] - BIDTIOrder Info: 2856-1 - PSA Performed By: #### L 100.0200, L500.2900 ####[facility] [address] [place], [address] T PROT 6.8 g/dL Normal 6.4-8.2 [facility] Comment on above: Order Comment: Order Date: 04/13/23Order Info: [id number] - BIDTIOrder Info: 2857-1 - PSA Performed By: #### L 100.0200, L500.2900 ####[facility] [address] [place], [address] Triglyceride [Mass/Vol] 119 mg/dL Normal [facility] Comment on above: Order Comment: Order Date: 04/13/23Order Info: [id number] - BIDTIOrder Info: 2857-1 - PSA Result Comment: The drugs N-Acetylcysteine and Metamizole may falsely depress this assay. Serum Triglycerides Reference Interval Normal <150 mg/dL Borderline high 150 - 199 mg/dL High 200 - 499 mg/dL Very High > or = 500 mg/dL Performed By: #### L 100.0200, L500.2900 ####[facility] [address] [place], [address] Urea nitrogen [Mass/Vol] 20 mg/dL High 7-18 [facility] Comment on above: Order Comment: Order Date: 04/13/23Order Info: [id number] - BIDTIOrder Info: [id number]- - PSA Performed By: #### L 100.0200, L500.2900 ####[facility] [address] [place], [address] URIC 6.2 mg/dL Normal 3.5-7.2 [facility] Comment on above: Order Comment: Order Date: 04/13/23Order Info: [id number] - BIDTIOrder Info: 2857-1 - PSA Result Comment: The drugs N-Acetylcysteine and Metamizole may falsely depress this assay. Performed By: #### L 100.0200, L500.2900 ####[facility] [address] [place], [address] PSA,Total - Annual Screenon 03-11-2024 PSA,TOT SCREEN 0.75 ng/mL Normal 0.00-4.00 [facility] Comment on above: Order Comment: Order Date: 04/13/23Order Info: [id number] - BIDTIOrder Info: 2857-1 - PSA Result Comment: This test was performed using the TPSA assay method for the [employer] chemistry system. Values obtained with different assay methods cannot be used interchangably. When changing PSA assays in the course of monitoring a patient, additional sequential testing should be carried out to confirm baseline values. Performed By: #### L 501.9910 ####[facility] [address] [place], [address] Urinalysis, Completeon 03-11 BACTERIA 0 SEEN Normal None Seen [facility] Comment on above: Order Comment: Order Date: 04/13/23Order Info: [id number] - UACCOLLECTOR TO SPECIFY Performed By: #### L 400.0001 ####[facility] [address] [place], [address] EPI,SQUAMOUS 0 SEEN Normal 0-5 [facility] Comment on above: Order Comment: Order Date: 04/13/23Order Info: [id number] - UACCOLLECTOR TO SPECIFY Performed By: #### L 400.0001 ####[facility] [address] [place], [address] Mucus Ql (Urine sed) 0 SEEN Normal [facility] Comment on above: Order Comment: Order Date: 04/13/23Order Info: [id number] - UACCOLLECTOR TO SPECIFY Performed By: #### L 400.0001 ####[facility] [address] [place], [address] RBC 0 SEEN Normal 0-5 [facility] Comment on above: Order Comment: Order Date: 04/13/23Order Info: [id number] - UACCOLLECTOR TO SPECIFY Performed By: #### L 400.0001 ####[facility] [address] [place], [address] WBC 0 SEEN Normal 0-5 [facility] Comment on above: Order Comment: Order Date: 04/13/23Order Info: [id number] - UACCOLLECTOR TO SPECIFY Performed By: #### L 400.0001 ####[facility] [address] [place], [place], [address] Vitamin D,25 Hydroxyon 03-11 Vitamin D 25-OH 80.4 ng/mL Normal [facility] Comment on above: Order Comment: Order Date: 04/13/23Order Info: [id number] - VITD25 Result Comment: Araceli min D 25(OH) Status Range Deficiency <20 ng/mL (50nmol/L) Insufficiency 20 - 30 ng/mL (50 - 75 nmol/L) Sufficiency 30 - 100 ng/mL (75 - 250 nmol/L) Toxicity >100 ng/mL (>250 nmol/L) Performed By: #### L 506.1000 ####[facility] [address] [place], [place], [phone] Absolute lymphocyte counton 08-24-2021 Lymphocytes Auto (Unsp spec) [#/Vol] 1.54 10*3/uL 0.83-4.51 [facility] Work Phone: Basophil percentageon 2021 Basophils/100 WBC (Bld) 0.8 % 0-1 [facility] Work Phone: Chloride [Moles/Vol] 111 mmol/L 98-107 [facility] Work Phone: Eosinophils/100 WBC (Bld) 5.8 % 0-5 [facility] Work Phone: Glucose [Mass/Vol] 99 mg/dL 74-106 [place] Work Phone: Neutrophils (Bld) [#/Vol] 3.5 10*3/uL 2.0-7.7 [facility] Work Phone: Neutrophils/100 WBC (Bld) 59.0 % 47-70 [facility] Work Phone: Potassium [Moles/Vol] 4.3 mmol/L 3.5-5.1 [facility] Work Phone: Sodium [Moles/Vol] 141 mmol/L 136-145 [place] Work Phone: WBC (Bld) [#/Vol] 6.0 10*3/uL 4.4-11.0 [facility] Work [facility]: Blood erythrocytes count (nu mber/volume)on 08-24-2021 RBC (Bld) [#/Vol] 5.24 10*6/uL 4.6-6.2 [facility]: Blood hemoglobin measurement (mass/volume)on 08-24-2021 Hemoglobin (Bld) [Mass/Vol] 15.4 g/dL 13.0-16.5 [facility] Work Phone: Blood lymphocytes/100 leukoc yteson 08-24-2021 Lymphocytes/100 WBC (Bld) 25.6 % 19-41 [facility] Work Phone: Blood monocytes/100 leukocyt eson 08-24-2021 Monocytes/100 WBC (Bld) 8.3 % 0-10 [facility] Work Phone: Blood platelet mean volumeon 08-24-2021 Platelet mean volume (Bld) [Entitic vol] 10.1 fL 6.2-12.0 [facility] Work Phone: Culture, urineon 08-24-2021 Bacteria identified Cx Nom (U) Culture exhibits no growth. [facility] Work Phone: Determination of erythrocyte mean corpuscular volume (MCV)on 08-24-2021 MCV (RBC) [Entitic vol] 87.8 fL 80-94 [facility] Work Phone: Hematocrit Auto (Bld) [Volum e fraction]on 08-24-2021 Hematocrit (Bld) [Volume fraction] 46.0 % 40-54 [facility] Work Phone: INR in Blood by Coagulation assayon 08-24-2021 INR Coag (Bld) [Relative time] 1.0 {INR} [facility] Work Phone: Laboratory - Chemistry and C hemistry - challengeon 08-24-2021 CO2 [Moles/Vol] 27.0 mmol/L 21.0-32.0 [facility] Work Phone: Urea nitrogen/Creatinine [Mass ratio] 15.1 mg/mg 10-20 [facility] Work Phone: Laboratory - Coagulationon 0 08-24-2021 aPTT Coag (Bld) [Time] 28.4 s 24.1-36.2 [facility] Work Phone: PT Coag (PPP) [Time] 12.6 s 11.7-14.9 [facility] Work Phone: Laboratory - Hematology and Cell countson 08-24-2021 Erythrocyte distribution width (RBC) [Entitic vol] 39.3 fL 35.1-43.9 [facility] Work Phone: Erythrocyte distribution width (RBC) [Ratio] 12.2 % 11.6-14.6 [facility] Work Phone: Immature granulocytes/100 WBC (Bld) 0.500 % 0.0-0.9 [facility] Work Phone: Comment on above: IG% - Immature Granu locytes (promyelocytes, myelocytes and metamyelocytes) > 1% indicates that a LEFT SHIFT is Present. MCH (RBC) [Entitic mass] 29.4 pg 27.0-32.0 [facility] Work Phone: Nucleated RBC/100 WBC (Bld) [Ratio] 0 % 0-5 [facility] Work Phone: MCHC Auto (RBC) [Mass/Vol]on 08-24-2021 MCHC (RBC) [Mass/Vol] 33.5 g/dL 32-36 [facility] Work Phone: No Panel Informationon 08-24 Estimated GFR (MDRD) Amer 81 mL/min >60 [facility] Work Phone: Comment on above: GFR Calc Estimated GFR (MDRD) Non-Af Amer 67 mL/min >60 [facility] Work Phone: Comment on above: Non- GFR Calc Prostate Specific Antigen Screen 0.80 ng/mL 0.00-4.00 [facility] Work Phone: Comment on above: This test was perfor med using the TPSA assay method for the[employer] chemistry system. Values obtained with differentassay methods cannot be used interchangably.When changing PSA assays in the course of monitoring apatient, additional sequential testing should be carriedout to confirm baseline values. Vitamin D 25-Hydroxy 30.4 ng/mL [facility] Work Phone: Comment on above: Vitamin D 25(OH) Sta tus Range Deficiency <20 ng/mL (50nmol/L) Insufficiency 20 - 30 ng/mL (50 - 75 nmol/L) Sufficiency 30 - 100 ng/mL (75 - 250 nmol/L) Toxicity >100 ng/mL (>250 nmol/L) Platelets bldon 08-24-2021 Platelets (Bld) [#/Vol] 230 10*3/uL 150-450 [facility] Work Phone: Serum or plasma calcium vianey urement (mass/volume)on 08-24-2021 Calcium [Mass/Vol] 9.2 mg/dL 8.5-10.1 [place] Work Phone: Serum or plasma creatinine m easurement (mass/volume)on 08-24-2021 Creatinine [Mass/Vol] 1.19 mg/dL 0.70-1.30 [facility] Work Phone: Comment on above: The validity of the calculated GFR & GFRAA in patients over 70 years has not been determined. Clinical correlation is essential. Serum or plasma urea nitroge n measurement (mass/volume)on 08-24-2021 Urea nitrogen [Mass/Vol] 18 mg/dL 7-18 [facility] Work Phone: Thin prep Papanicolaou smear with manual screeningon 08-24-2021 Thin prep Papanicolaou smear with manual screening 3 5-15 [facility] Work Phone: Office Visit: UC: OD redness and painon 12-13-2016 Alcoholism counseling (procedure) no Invalid Interpretation Code [facility] Work Phone: Documentation of current medications (procedure) Done Invalid Interpretation Code [facility] Work Phone: Fall risk assessment No Invalid Interpretation Code [facility] Work Phone: Protein mass conc Done [facility] Work Phone: Protein mass conc no [facility] Work Phone: Tobacco smoking status NHIS Never smoker [facility] Work Phone: Tobacco use CPHS Never smoker Invalid Interpretation Code [facility] Work Phone: Office Visit: Spine Visit- N EWon 12-08-2016 Protein mass conc Done [facility] Work Phone: Protein mass conc no [facility] Work Phone: Tobacco smoking status NHIS Never smoker [facility] Work Phone: Vital Signs Date Time Vital Sign Value Performing Clinician Faci jenn 11-11-2024 06:41-0400 Body temperature 98.9 [degF] Dr. Bernardo García MD Work Phone: [facility] 11-11-2024 06:41-0400 Diastolic blood pressure 54 mm[Hg] Dr. Bernardo García MD Work Phone: [facility] 11-11-2024 06:41-0400 Heart rate 72 /min Dr. Bernardo García MD Work Phone: [facility] 11-11-2024 06:41-0400 Respiratory rate 18 /min Dr. Bernardo García MD Work Phone: [facility] 11-11-2024 06:41-0400 SaO2% (BldA) [Mass fraction] 94 % Dr. Bernardo García MD Work Phone: 9(821)139-302312 [place] [address] 11-11-2024 06:41-0400 Systolic blood pressure 120 mm[Hg] Dr. Bernardo García MD Work Phone: 7(521)746-268967 [place] [address] 11-10-2024 14:19-0400 Inhaled oxygen flow rate 2 L/min Dr. Bernardo García MD Work Phone: 1(125)486-013667 [place] [address] 11-10-2024 05:41-0400 Body height 185.[address] Bernardo García MD Work Phone: 6(495)885-153567 [place] [address] 11-10-2024 05:41-0400 Body mass index (BMI) [Ratio] 25.7 kg/m2 Dr. Bernardo García MD Work Phone: 9(757)797-057267 [place] [address] 11-10-2024 05:41-0400 Body weight 88.[address] Bernardo García MD Work Phone: 5(615)349-737967 [place] [address] 11-10-2024 00:00-0400 Diastolic blood pressure 75 mm[Hg] Dr. Bernardo García MD Work Phone: 3(654)379-770067 [place] [address] 11-10-2024 00:00-0400 Heart rate 62 /min Dr. Bernardo García MD Work Phone: 3(782)293-799967 [place] [address] 11-10-2024 00:00-0400 Respiratory rate 16 /min Dr. Bernardo García MD Work Phone: 1(350)491-052267 [place] [address] 11-10-2024 00:00-0400 SaO2% (BldA) [Mass fraction] 97 % Dr. Bernardo García MD Work Phone: 7(223)359-166867 [place] [address] 11-10-2024 00:00-0400 Systolic blood pressure 145 mm[Hg] Dr. Bernardo García MD Work Phone: 4(090)053-306267 [place] [address] 11-09-2024 23:32-0400 Body temperature 98.1 [degF] Dr. Bernardo García MD Work Phone: 2(818)764-419067 [place] [address] 11-09-2024 22:07-0400 Body mass index (BMI) [Ratio] 25.4 kg/m2 Dr. Bernardo García MD Work Phone: [facility] 11-09-2024 22:07-0400 Body weight 87.[address] Bernardo García MD Work Phone: [facility] 11-09-2024 22:05-0400 Body height 185.[address] Bernardo García MD Work Phone: [facility] 07-05-2021 10:25-0500 Body height 185.[address] Naga García Work Phone: [facility] Work Phone: 07-05-2021 10:25-0500 Body mass index (BMI) [Ratio] 27.1 kg/m2 Dr. Naga García Work Phone: [facility] Work Phone: 07-05-2021 10:25-0500 Body weight 93.[address] Naga García Work Phone: [facility] Work Phone: 12-13-2016 14:44-0400 BMI (Body Mass Index) 31.71 kg/m2 Brigitte Burch LPN [facility] Work Phone: 12-13-2016 14:44-0400 Body Temperature 97.8 [degF] Brigitte Burch LPN [facility] Work Phone: 12-13-2016 14:44-0400 BP Diastolic 82 mm[Hg] Brigitte Burch LPN [facility] Work Phone: 12-13-2016 14:44-0400 BP Systolic 128 mm[Hg] Brigitte Burch LPN [facility] Work Phone: 12-13-2016 14:44-0400 Height 177.8 cm Brigitte Burch LPN [facility] Work Phone: 12-13-2016 14:44-0400 Pulse (Heart Rate) 78 /min Brigitte Burch LPN [facility] Work Phone: 12-13-2016 14:44-0400 Pulse Oximetry 96 % Brigitte Burch LPN [facility] Work Phone: 12-13-2016 14:44-0400 Respiratory Rate 15 /min Brigitte Burch LPN [facility] Work Phone: 12-13-2016 14:44-0400 Weight 100.25 kg Brigitte Burch LPN [facility] Work Phone: 12-08-2016 14:41-0400 BMI (Body Mass Index) 27.26 kg/m2 Ada Dossi DC [facility] Work Phone: 12-08-2016 14:41-0400 Weight 86.18 kg Ada Dossi DC [facility] Work Phone: 03-20-2014 15:03-0400 Body Temperature 96.6 [degF] Ada Dossi DC [facility] Work Phone: 03-20-2014 15:03-0400 BP Diastolic 80 mm[Hg] Ada Dossi DC [facility] Work Phone: 03-20-2014 15:03-0400 BP Systolic 124 mm[Hg] Ada Dossi DC [facility] Work Phone: 03-20-2014 15:03-0400 BSA (Body Surface Area) 2.04 m2 Ada Dossi DC [facility] Work Phone: 03-20-2014 15:03-0400 Pulse (Heart Rate) 54 /min Ada Dossi DC [facility] Work Phone: 03-20-2014 15:03-0400 Respiratory Rate 14 /min Ada Dossi DC [facility] Work Phone: 07-05-2012 19:32-0500 Height 177.8 cm Ada Dossi DC [facility] Work Phone: 06-09-2011 08:08-0500 Pulse Oximetry 96 % Ada Hyatt DC [facility] Work Phone: Encounters Encounter Date Encounter Type Care Provider Facility Start: 11-26-2024 ambulatory Inocencio Wallace Facility: [facility] Start: 11-10-2024 Non-patient / Non-visit Dr. Avinash Delacruz MD -[facility] Work Phone: Start: 11-10-2024 ambulatory Bernardo Morenoi lity:[facility] Start: 11-10-2024 End: 11-11-2024 Evaluation and management of inpatient Dr. Avinash Delacruz MD -[facility] Work Phone: Start: 05-03-2024 ambulatory Bernardo Patel lity:[facility] Start: 05-03-2024 End: 05-03-2024 ambulatory Bernardo García Facility:[facility] Start: 03-15-2024 ambulatory [facility] Facility:[facility] Start: 03-11-2024 ambulatory Health Risk Assessment Facility:[facility] Start: 03-11-2024 End: 03-11-2024 ambulatory [facility] Start: 08-24-2021 End: 08-24-[address] Naga García Work Phone: [facility] Start: 07-05-2021 End: 07-05-[address] Naga García Work Phone: [facility] Start: 07-05-2021 End: 07-05-[address] Naga [facility]ía [facility] Procedures Date Procedure Procedure Detail Performing Clinician Start: 11-11-[address] Bernardo García MD Work Phone: Start: 11-10-2024 Plain X-ray of hip Dr. Bernardo García MD Work Phone: Start: 11-10-2024 Fluoroscopic guidance Alison García MD Work Phone: Start: 11-10-2024 Plain x-ray of pelvi s and lower extremity Dr. Bernardo García MD Work Phone: Start: 11-10-2024 Total replacement of hip Dr. Bernardo García MD Work Phone: Start: 11-10-2024 Serum inorganic phos phate measurement Dr. Bernardo García MD Work Phone: Start: 11-09-[address] Bernardo García MD Work Phone: Start: 11-09-2024 Plain x-ray of pelvi s and lower extremity Dr. Bernardo García MD Work Phone: Start: 11-09-2024 Plain X-ray of shoulder Dr. Bernardo García MD Work Phone: Start: 08-24-2021 Bacteria identified in Urine by Culture Dr. Naga García Work Phone: Start: 08-24-[address] Alexey García Work Phone: Start: 07-05-2021 End: 07-05-2021 Radiologic examination of knee Dr. Naga García Work Phone: Start: 12-08-2016 End: 12-08-2016 Chiropract manj 1-2 regions Ada Hyatt DC Work Phone: Start: 12-08-2016 End: 12-08-2016 X-ray exam of thoracic spine Ada Hyatt DC Work Phone: Plan of Treatment Date Care Activity Detail Author Start: 11-11-2024 [facility] Start: 11-11-2024 [facility] Start: 11-11-2024 Patient discharge [facility] Start: 11-11-2024 [facility] Start: 11-11-2024 [facility] Start: 11-11-2024 [facility] Start: 11-11-2024 [facility] Start: 11-11-2024 [facility] Start: 11-10-2024 [facility] Start: 11-10-2024 Application of intermittent pneumatic compression device [facility] Start: 11-10-2024 [facility] Start: 11-10-2024 [facility] Start: 11-10-2024 [facility] Start: 11-10-2024 [facility] Start: 11-10-2024 Provision of overbed trapeze [facility] Start: 11-10-2024 End: 11-10-2024 [facility] Start: 11-10-2024 Recommendation to continue with treatment [facility] Start: 11-10-2024 Ambulation therapy management [facility] Start: 11-10-2024 Application of device [facility] Start: 11-10-2024 Assessment of risk of venous thromboembolism [facility] Start: 11-10-2024 Catheterization of vein [facility] Start: 11-10-2024 Exercises [facility] Start: 11-10-2024 Following clinical pathway protocol [facility] Start: 11-10-2024 Incentive spirometry [facility] Start: 11-10-2024 Introduction of urinary catheter [facility] Start: 11-10-2024 Measuring intake and output [facility] Start: 11-10-2024 Neurovascular assessment [facility] Start: 11-10-2024 Patient education [facility] Start: 11-10-2024 Procedure discontinued [facility] Start: 11-10-2024 Provision of activity privileges [facility] Start: 11-10-2024 Referral to occupational therapist [facility] Start: 11-10-2024 Referral to service [facility] Start: 11-10-2024 Vital signs measurements [facility] Start: 11-10-2024 Wound care [facility] Start: 11-10-2024 Hepatic function panel [facility] Start: 11-10-2024 Prothrombin time [facility] Start: 11-10-2024 Serum inorganic phosphate measurement [facility] Start: 11-10-2024 Thyroid stimulating hormone measurement [facility] Start: 11-10-2024 Following clinical pathway protocol [facility] Start: 11-10-2024 Hepatic function panel [facility] Start: 11-10-2024 Admission procedure [facility] Start: 11-10-2024 Assessment of risk of venous thromboembolism [facility] Start: 11-10-2024 Insertion of catheter into peripheral vein [facility] Start: 11-10-2024 Providing care according to standard [facility] Start: 11-10-2024 Provision of activity privileges [facility] Start: 11-10-2024 Referral to occupational therapist [facility] Start: 11-10-2024 Referral to service [facility] Start: 11-10-2024 Verification routine [facility] Start: 11-10-2024 Hospital admission, emergency, from emergency room, medical nature [facility] Start: 11-09-2024 Plain chest X-ray Chest 1 View (Portable) [facility] Start: 11-09-2024 End: 11-10-2024 [facility] Start: 12-13-2016 End: 12-13-2016 Appointment Appointment [facility] Work Phone: Start: 12-08-2016 End: 12-08-2016 Appointment Appointment [facility] Work Phone: Start: 12-08-2016 End: 12-08-2016 BUN (urea nitrogen) X-Ray, Rib, Unilateral [facility] Work Phone: Start: 12-08-2016 End: 12-08-2016 Urea nitrogen mass conc X-Ray, [facility], [facility] Work Phone: Start: 04-22-2016 End: 04-22-2016 X-rays, bone length studies Bone length studies [facility] Work Phone: Start: 06-30-2014 End: 06-30-2014 Mri jnt of lwr extre w/o dye MRI Joint Lower Extrem[facility] Work Phone: Alanine aminotransfe rase [Enzymatic activity/volume] in Serum or Plasma [facility] Alanine aminotransfe rase [Enzymatic activity/volume] in Serum or Plasma [facility] Albumin [Mass/volume ] in Serum or Plasma [facility] Albumin [Mass/volume ] in Serum or Plasma [facility] Alkaline phosphatase [Enzymatic activity/volume] in Serum or Plasma [facility] Alkaline phosphatase [Enzymatic activity/volume] in Serum or Plasma [facility] Anion gap in Serum o r Plasma [facility] Bilirubin, total measurement [facility] Bilirubin, total measurement [facility] Bilirubin.direct [Mass/volume] in Serum or Plasma [facility] Bilirubin.direct [Mass/volume] in Serum or Plasma [facility] BUN/Creatinine ratio [facility] Calcium [Mass/volume ] in Serum or Plasma [facility] Carbon dioxide, tota l [Moles/volume] in Central venous blood [facility] Creatine kinase [Enz ymatic activity/volume] in Serum or Plasma [facility] Creatinine [Mass/vol ume] in Serum or Plasma [facility] Erythrocyte mean corpuscular volume determination [facility] Glucose [Mass/volume ] in Serum or Plasma [facility] Hematocrit [Volume Fraction] of Blood [facility] Hemoglobin [Mass/vol ume] in Blood [facility] INR in Blood by Coag ulation assay [facility] Leukocytes [#/volume ] in Blood [facility] Magnesium measurement [place] Mean corpuscular hem oglobin concentration determination [facility] Mean corpuscular hem oglobin determination [facility] Measurement of renal function [facility] Neutrophil count [facility] Neutrophil percent differential count [facility] Patient Education [facility] Work Phone: Patient referral [facility] Work Phone: Platelets [#/volume] in Blood [facility] Potassium measurement [place] Red blood cell count [facility] Red cell distributio n width determination [facility] Serum chloride measurement [facility] Sodium measurement [facility] Total protein measurement [facility] Total protein measurement [facility] Urea nitrogen [Mass/ volume] in Serum or Plasma [facility] Immunizations Immunization Date Immunization Notes Care Provider Fa [facility] 11-09-2024 tetanus toxoid, reduced diphtheria toxoid, and acellular pertussis vaccine, adsorbed Dr. Bernardo García MD Work Phone: [facility] 04-04-2024 influenza, seasonal, injectable, preservative free Dr. Bernardo García MD Work Phone: [facility] 04-26-2023 influenza, injectabl e, quadrivalent, preservative free Dr. Bernardo García MD Work Phone: [facility] 04-28-2022 influenza, injectabl e, quadrivalent, preservative free Dr. Bernardo García MD Work Phone: [facility] 07-23-2021 Covid (Pfizer) Dr. Artis García Work Phone: [facility] 04-07-2021 influenza, injectabl e, quadrivalent, preservative free Dr. Bernardo García MD Work Phone: [facility] 04-07-2021 influenza, seasonal, injectable Dr. Naga García Work Phone: [facility] Work Phone: 07-27-2020 Covid (Moderna) Dr. Asim García Work Phone: [facility] 06-29-2020 Covid (Moderna) Dr. Asim García Work Phone: [facility] 05-04-2020 influenza, injectabl e, quadrivalent, preservative free Dr. Bernardo García MD Work Phone: [facility] 05-04-2020 influenza, seasonal, injectable Dr. Naga García Work Phone: [facility] Work Phone: 05-01-2019 influenza, injectabl e, quadrivalent, preservative free Dr. Bernardo García MD Work Phone: [facility] 05-01-2019 influenza, seasonal, injectable Dr. Naga García Work Phone: [facility] Work Phone: 05-09-2018 influenza, injectabl e, quadrivalent, preservative free Dr. Bernardo García MD Work Phone: [facility] 05-09-2018 influenza, seasonal, injectable Dr. Naga García Work Phone: [facility] Work Phone: 05-11-2017 influenza, injectabl e, quadrivalent, preservative free Dr. Bernardo García MD Work Phone: [facility] 05-11-2017 influenza, seasonal, injectable Dr. Naga García Work Phone: [facility] Work Phone: 05-04-2016 influenza, injectabl e, quadrivalent, preservative free Dr. Bernardo García MD Work Phone: [facility] 05-04-2016 influenza, seasonal, injectable Dr. Naga García Work Phone: [facility] Work Phone: 04-21-2015 influenza, injectabl e, quadrivalent, preservative free Dr. Bernardo García MD Work Phone: [facility] 04-21-2015 influenza, seasonal, injectable Dr. Naga García Work Phone: [facility] Work Phone: 05-08-2014 influenza, injectabl e, quadrivalent, preservative free Dr. Bernardo García MD Work Phone: [facility] 05-08-2014 influenza, seasonal, injectable Dr. Naga García Work Phone: [facility] Work Phone: Payers Date Payer Category Payer Self-pay [id number] 2024 Unknown [id number] 2016 Unknown [facility] [id number] Unknown [id number] Unknown [id number] Unknown [id number] Unknown [id number] Unknown [id number] Unknown [id number] Unknown [id number] Unknown [id number] Social History Date Type Detail Facility Start: 07-05-2021 Tobacco smoking stat us NDIS Unknown if ever smoked [facility] Work Phone: Start: 1960 Sex Assigned At Male [facility] Start: 11-09-2024 End: 11-10-2024 Tobacco smoking status NHIS Never smoked tobacco (finding) [facility] Goals Date Patient Goal Desired Activity /State Functional Status Date Assessment Result Facility 11-11-2024 Functional status Ambulates;Bathroom Priv ilege [facility] Work Phone: Mental Status Date Assessment Result Facility 11-11-2024 Cognitive function Voice/Name [facility] Work Phone: 11-10-2024 Cognitive function Appropriate;Marcellus pressley [facility] Work Phone: Clinical Notes 05-03-2024 to 11-11-2024 Note Date & Type Note Facility 11-11-2024 Consult note Note Date/Time November 11, 2024 11:09am [facility] Medical Records Department [address] [place] [address] Counseling Note - Pharmacy 11/11/24 1108 MR#: [id number] Acct: [id number] Name: KEVEN PÉREZ Rep #:[id number] : 1960 63 From: Aracely Bryson PCP: Dr. Bernardo García MD Status :ADM IN Y [place] [facility] [id number] [facility] Pharmacy Service has performed discharge medication reconciliation and counseling for this patient. 1. ASPIRIN 81MG PO BIDCM X 30 DAYS 2. OXYCODONE 5-10MG PO Q4H PRN PAIN 3. PANTOPRAZOLE 40MG PO DAILY X 30 DAYS The patient's discharge medication list was reviewed for discrepancies and discrepancies were resolved. The patient was counseled on the following discharge medications and changes in medications for homegoing were reviewed. The Reason for Use, instructions for use, and potential side effects were reviewed for all new medications. The patient's questions regarding all of their medications were answered. The patient was able to verbally demonstrate an understanding of their dischargemedications. Medications at Discharge Home Medications cholecalciferol (vitamin D3) 125 mcg (5,000 unit) tablet (Vitamin D3) 250 mcg POQDAY 05/01/24 aspirin 81 mg chewable tablet 81 mg PO BIDCM #0 tabs 11/10/24 oxycodone 5 mg tablet 5 - 10 mg (1 - 2 x 5 mg) PO Q4H PRN PRN Pain Score 4-10 7 days #20 tabs 11/10/24 pantoprazole 40 mg tablet,delayed release (Protonix) 40 mg PO DAILY #30 tabs 11/10/24 11/11/24 1109 <Electronically signed by Aracely Bryson> Date _ Aracely Coyle Signature (if applicable): Date CC: ~ Signed [facility] Work Phone: 1(742) 715-595705-19-2025 Discharge summary Author Noel Case [facility] Note Date/Time November 11, 2024 10:22 am [facility] Medical Records Department [address] [place] [address] Instructions for Home/Discharge Instructions 11/10/24 1836 MR#: [id number] Acct: [id number] Name: KEVEN PÉREZ Rep #:[id number] : 1960 63 From: Noel Case DO PCP: Dr. Bernardo García MD Status :ADM IN Discharge Instructions Diet Discharge Diet: No restrictions DC O2, CPAP, BIPAP needs Home O2 Discharge instructions: No Dressing / Incision Discharge Activity: May Not Drive Weight Bearing Status: Weight bearing as tolerated Follow Up Care Test Results: Test results from this visit will be discussed in further detail at your follow- up appointment, if applicable. Discharge Plan Admission Admit Date/Time: 11/10/24 00:10 Primary Reason for Your Visit: Right hip fracture Attending Provider: Noel Case Primary Care Provider: Bernardo García Consulting Providers: Avinash Delacruz Instructions Additional Instructions / Restrictions: You may remove waterproof dressing on postop day 5, when waterproof dressing remains in place you can continue to shower, if dressing is to be changed to a nonocclusive dressing discontinue showering until incision is clean and dry Discharge Orders/Prescriptions Prescriptions: New aspirin 81 mg Tablet,Chewable 81 mg PO BIDCM Qty: 0 0RF Rx Instructions: Take 1 twice a day for 30 days for DVT prophylaxis oxycodone 5 mg Tablet 5 - 10 mg PO Q4H PRN PRN (Reason: Pain Score 4-10) 7 Days Qty: 20 0RF pantoprazole [Protonix] 40 mg tablet,delayed release (DR/EC) 40 mg PO DAILY Qty: 30 0RF Continued cholecalciferol (vitamin D3) [Vitamin D3] 125 mcg (5,000 unit) tablet 250 mcg PO QDAY Referrals / Follow Up: Bernardo García MD [Primary Care Provider] - Inocencio Wallace MD [Med Staff - Active Staff] - See Referral Note (In 2 weeks) Disposition Disposition (needs filled in before D/C Order can be placed): Home, Self Care 11/11/24 1022<Electronically signed by Noel Case DO>Noel Case DO CC: Dr. Avinash Delacruz MD; Dr. Bernardo García MD ~ Signed [facility] Work Phone: [phone]) 498-661805-19-2025 Consult note [facility] Medical Records Department [address] [place] [address] Counseling Note - Pharmacy 11/11/24 1108 MR#: [id number] Acct: [id number] Name: KEVEN PÉREZ Rep #:[id number] : 1960 63 From: Aracely Bryson PCP: Dr. Bernardo García MD Status :ADM IN Y [facility] has performed discharge medication reconciliation and counseling for this patient. 1. ASPIRIN 81MG PO BIDCM X 30 DAYS 2. OXYCODONE 5-10MG PO Q4H PRN PAIN 3. PANTOPRAZOLE 40MG PO DAILY X 30 DAYS The patient's discharge medication list was reviewed for discrepancies and discrepancies were resolved. The patient was counseled on the following discharge medications and changes in medications for homegoing were reviewed. The Reason for Use, instructions for use, and potential side effects were reviewed for all new medications. The patient's questions regarding all of their medications were answered. The patient was able to verbally demonstrate an understanding of their dischargemedications. Medications at Discharge Home Medications cholecalciferol (vitamin D3) 125 mcg (5,000 unit) tablet (Vitamin D3) 250 mcg POQDAY 05/01/24 aspirin 81 mg chewable tablet 81 mg PO BIDCM #0 tabs 11/10/24 oxycodone 5 mg tablet 5 - 10 mg (1 - 2 x 5 mg) PO Q4H PRN PRN Pain Score 4-10 7 days #20 tabs 11/10/24 pantoprazole 40 mg tablet,delayed release (Protonix) 40 mg PO DAILY #30 tabs 11/10/24 11/11/24 1109 Date _ Aracely Coyle Signature (if applicable): Date CC: ~ Signed [facility]05-19-2025 Discharge summary [facility] Medical Records Department [address] [place] [address] Instructions for Home/Discharge Instructions 11/10/24 1836 MR#: [id number] Acct: [id number] Name: KEVEN PÉREZ Rep #:[id number] : 1960 63 From: Noel Case DO PCP: Dr. Bernardo García MD Status :ADM IN Discharge Instructions Diet Discharge Diet: No restrictions DC O2, CPAP, BIPAP needs Home O2 Discharge instructions: No Dressing / Incision Discharge Activity: May Not Drive Weight Bearing Status: Weight bearing as tolerated Follow Up Care Test Results: Test results from this visit will be discussed in further detail at your follow- up appointment, if applicable. Discharge Plan Admission Admit Date/Time: 11/10/24 00:10 Primary Reason for Your Visit: Right hip fracture Attending Provider: Noel Case Primary Care Provider: Bernardo García Consulting Providers: Avinash Delacruz Instructions Additional Instructions / Restrictions: You may remove waterproof dressing on postop day 5, when waterproof dressing remains in place you can continue to shower, if dressing is to be changed to a nonocclusive dressing discontinue showeringuntil incision is clean and dry Discharge Orders/Prescriptions Prescriptions: New aspirin 81 mg Tablet,Chewable 81 mg PO BIDCM Qty: 0 0RF Rx Instructions: Take 1 twice a day for 30 days for DVT prophylaxis oxycodone 5 mg Tablet 5 - 10 mg PO Q4H PRN PRN (Reason: Pain Score 4-10) 7 Days Qty: 20 0RF pantoprazole [Protonix] 40 mg tablet,delayed release (DR/EC) 40 mg PO DAILY Qty: 30 0RF Continued cholecalciferol (vitamin D3) [Vitamin D3] 125 mcg (5,000 unit) tablet 250 mcg PO QDAY Referrals / Follow Up: Bernardo García MD [Primary Care Provider] - Inocencio Wallace MD [Med Staff - Active Staff] - See Referral Note (In 2 weeks) Disposition Disposition (needs filled in before D/C Order can be placed): Home, Self Care 11/11/24 1022[facility] CC: Dr. Avinash Delacruz MD; Dr. Bernardo García MD ~ Signed [facility]05-19-2025 Progress note Author Blanche Castillo [facility] Note Date/Time November 11, 2024 7:43a m [facility] Medical Records Department [address] [place] [address] Progress Note - Orthopedic 11/11/24 0735 MR#: [id number] Acct: [id number] Name: KEVEN PÉREZ Rep #:[id number] : 1960 63 From: Blanche CARVAJAL PCP: Dr. Bernardo García MD Status :ADM IN Location: [place] [address]-1 Subjective Subjective Patient is sitting comfortably in bed. Patient states that his pain has been adequately controlled. Patient states that he has been up to use the bathroom and been up to the side chair. Patient denies any new numbness or tingling. Patient denies any fevers, chills, signs of infection. Patient denies any shortness of breath, chest pain, calf pain. Patient denies any lightheadedness. Patient denies any adverse events overnight. Objective Data Objective Data Vital Signs: Vital Signs Temp Pulse Resp BP Pulse Ox O2 Del Method O2 Flow Rate 98.9 F 72 18 120/54 L 94 Room Air 2 11/11/24 06:41 11/11/24 06:41 11/11/24 06:41 11/11/24 06:41 11/11/24 06:41 11/11/24 06:41 11/10/24 14:19 Oxygen Flow Rate (L/min) 2 Oxygen Delivery Method Room Air Weight: 88.541 kg Body Mass Index (BMI) 25.7 Intake & Output: Intake and Output for Last 24 Hours 11/09/24 11/10/24 11/11/24 23:59 23:59 23:59 Intake Total 1520 / 1520 250 / 250 Output Total 400 / 400 Balance 1120 / 1120 250 / 250 Lab / Micro Data 11/11/24 04:40 11/11/24 04:40 Labs: Laboratory Results - last 24 hr 11/11/24 04:40: WBC 9.3, RBC 3.91 L, Hgb 11.8 L, Hct 35.1 L, MCV 89.8, MCH 30.2,MCHC 33.6, RDW Std Deviation 40.0, RDW Coeff of Nanci 12.2, Plt Count 152, MPV 10.1, Immature Gran % (Auto) 0.600, Neut % (Auto) 70.7 H, Lymph % (Auto) 14.8 L,[place] % (Auto) 9.3, Eos % (Auto) 4.2, Baso % (Auto) 0.4, Absolute Neuts (auto) 6.5, Absolute Lymphs (auto) 1.37, Nucleated RBC % 0, Sodium 136, Potassium 4.0, Chloride 103, Carbon Dioxide 25.1, Anion Gap 8, BUN 18, Creatinine 1.52 H, EstimCreat Clear Calc 57.68, Est GFR (MDRD) Non-Af 52 L, BUN/Creatinine Ratio 12.0, Glucose 119 H, Calcium 8.2 Radiography Diagnostic Testing: Radiology Impression Hip/Pelvis X-Ray 11/10/24 11:55 IMPRESSION: Fluoroscopic guidance was used intraoperatively. Please refer to operative notefor further details. Reading Location: [facility] Hip X-Ray 11/10/24 13:25 IMPRESSION: Status post total hip replacement in anatomic position. Reading Location: [facility] Physical Exam Narrative JENNYFER hose in place bilaterally SCDs in place bilaterally Dressing is clean dry and intact Right hip is soft and supple. Dorsiflexion and plantarflexion are performed actively without pain or restriction Sensation tact light touch Neurovascularly intact overall. Negative Homans bilaterally. Const alert, oriented x3 and no apparent distress Assessment & Plan Assessment/Plan (1) Status post total hip replacement, right: PLAN: Status post closed fracture of neck of right femur with direct anterior total hip replacement postop day 1. 1. DVT prophylaxis: Patient will be on aspirin 81 mg twice daily for 4 weeks. Patient was instructed to wear his JENNYFER hose for 2 weeks postoperatively removingat bedtime. 2. Pain medications: Patient was instructed to take Tylenol 1000 mg every 8 hours [id number] taking no more than 3024 hours. Patient was educated he will then be on oxycodone as needed for breakthrough pain. OARRS report was reviewed today. 3. Constipation: Patient was instructed to take senna as instructed until her first bowel movement to decrease risk of impaction following surgery. Patient was instructed if they have not had a bowel movement in 3 days to call our office for reevaluation. 4. Physical therapy: Patient will be weightbearing as tolerated with walker with physical therapy. 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 5. H&H: 11.8/35.1. Vitals are stable and patient is afebrile. 6. We will avoid NSAIDs in this patient due to GFR and elevated creatinine. 7. Incentive spirometry: Patient was encouraged to use incentive spirometer every hour that they are awake for the first week to x-ray of lungs and decreaserisk of postoperative lung infection. 8. Patient was educated he can get dressing wet on postop day 1 and remove dressing on postop day 5. As long as incision looks clean dry and intact may leave open to air and shower using gentle soap and water. Patient was educated to avoid doing any soaking or submerging for 6 weeks. Patient was educated to avoid any lotions, salves, oils directly on top of incision for 6 weeks. 9. Patient's primary care team is medicine so he is being managed by medicine team. Appreciate recommendations from medicine team. 10. Follow-up appointment: Patient is to follow-up at [facility] office for 2-week appointment for evaluation of right hip. Patient is okay for discharge from orthopedic standpoint as long as pain maintains adequately controlled, has worked with and is cleared by physical therapy, and is okay per medicine doctor who is primary care team. 11. Disposition: Patient does plan to go home at this point. 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 Patient was educated he will follow-up with our office in 2 weeks for reevaluation of the right hip. Patient will need to have outpatient physical therapy scheduled. Patient will be weightbearing as tolerated with walker. Patient was encouraged to call our office with any questions, concerns, new problems. All questions were answered to best my ability. 11/11/24 0743 <Electronically signed by Blanche CARVAJAL> Cosigner Signature (if applicable): CC: ~ Signed [facility] Work Phone: 1(452) 356-340505-19-2025 Progress note [facility] Medical Records Department [address] [place] [address] Progress Note - Orthopedic 11/11/24 0735 MR#: [id number] Acct: [id number] Name: KEVEN PÉREZ Rep #:[id number] : 1960 63 From: Blanche CARVAJAL PCP: Dr. Bernardo García MD Status :ADM IN Location: [facility] [id number] Subjective Subjective Patient is sitting comfortably in bed. Patient states that his pain has been adequately controlled.Patient states that he has been up to use the bathroom and been up to the side chair. Patient denies any new numbness or tingling. Patient denies any fevers, chills, signs of infection. Patient denies any shortness of breath, chest pain, calf pain. Patient denies any lightheadedness. Patient deniesany adverse events overnight. Objective Data Objective Data Vital Signs: Vital Signs Temp Pulse Resp BP Pulse Ox O2 Del Method O2 Flow Rate 98.9 F 72 18 120/54 L 94 Room Air 2 11/11/24 06:41 11/11/24 06:41 11/11/24 06:41 11/11/24 06:41 11/11/24 06:41 11/11/24 06:41 11/10/24 14:19 Oxygen Flow Rate (L/min) 2 Oxygen Delivery Method Room Air Weight: 88.541 kg Body Mass Index (BMI) 25.7 Intake & Output: Intake and Output for Last 24 Hours 11/09/24 11/10/24 11/11/24 23:59 23:59 23:59 Intake Total 1520 / 1520 250 / 250 Output Total 400 / 400 Balance 1120 / 1120 250 / 250 Lab / Micro Data 11/11/24 04:40 11/11/24 04:40 Labs: Laboratory Results - last 24 hr 11/11/24 04:40: WBC 9.3, RBC 3.91 L, Hgb 11.8 L, Hct 35.1 L, MCV 89.8, MCH 30.2,MCHC 33.6, RDW Std Deviation 40.0, RDW Coeff of Nanci 12.2, Plt Count 152, MPV 10.1, Immature Gran % (Auto) 0.600, Neut %(Auto) 70.7 H, Lymph % (Auto) 14.8 L,[place] % (Auto) 9.3, Eos % (Auto) 4.2, Baso % (Auto) 0.4, Absolute Neuts (auto) 6.5, Absolute Lymphs (auto) 1.37, Nucleated RBC % 0, Sodium 136, Potassium 4.0, Chloride 103, Carbon Dioxide 25.1, Anion Gap 8, BUN 18, Creatinine 1.52 H, EstimCreat Clear Calc 57.68, Est GFR (MDRD) Non-Af 52 L, BUN/Creatinine Ratio 12.0, Glucose 119 H, Calcium 8.2 Radiography Diagnostic Testing: Radiology Impression Hip/Pelvis X-Ray 11/10/24 11:55 IMPRESSION: Fluoroscopic guidance was used intraoperatively. Please refer to operative notefor further details. Reading Location: [facility] Hip X-Ray 11/10/24 13:25 IMPRESSION: Status post total hip replacement in anatomic position. Reading Location: [facility] Physical Exam Narrative JENNYFER hose in place bilaterally SCDs in place bilaterally Dressing is clean dry and intact Right hip is soft and supple. Dorsiflexion and plantarflexion are performed actively without pain or restriction Sensation tact light touch Neurovascularly intact overall. Negative Homans bilaterally. Const alert, oriented x3 and no apparent distress Assessment & Plan Assessment/Plan (1) Status post total hip replacement, right: PLAN: Status post closed fracture of neck of right femur with direct anterior total hip replacementpostop day 1. 1. DVT prophylaxis: Patient will be on aspirin 81 mg twice daily for 4 weeks. Patient was instructed to wear his JENNYFER hose for 2 weeks postoperatively removingat bedtime. 2. Pain medications: Patient was instructed to take Tylenol 1000 mg every 8 hours [id number] taking no more than 3024 hours. Patient was educated he will then be on oxycodone as needed for breakthrough pain. OARRS report was reviewed today. 3. Constipation: Patient was instructed to take senna as instructed until her first bowel movement to decrease risk of impaction following surgery. Patient was instructed if they have not had a bowelmovement in 3 days to call our office for reevaluation. 4. Physical therapy: Patient will be weightbearing as tolerated with walker with physical therapy. 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 5. H&H: 11.8/35.1. Vitals are stable and patient is afebrile. 6. We will avoid NSAIDs in this patient due to GFR and elevated creatinine. 7. Incentive spirometry: Patient was encouraged to use incentive spirometer every hour that they are awake for the first week to x-ray of lungs and decreaserisk of postoperative lung infection. 8. Patient was educated he can get dressing wet on postop day 1 and remove dressing on postop day 5. As long as incision looks clean dry and intact may leave open to air and shower using gentle soap and water. Patient was educated to avoid doing any soaking or submerging for 6 weeks. Patient was educated to avoid any lotions, salves, oils directly on top of incision for 6 weeks. 9. Patient's primary care team is medicine so he is being managed by medicine team. Appreciate recommendations from medicine team. 10. Follow-up appointment: Patient is to follow-up at [facility] office for 2-week appointment for evaluation of right hip. Patient is okay for discharge from orthopedic standpoint as long as pain maintains adequately controlled, has worked with and is cleared by physical therapy, and is okay per medicine doctor who is primary care team. 11. Disposition: Patient does plan to go home at this point. 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 Patient was educated he will follow-up with our office in 2 weeks for reevaluation of the right hip. Patient will need to have outpatientphysical therapy scheduled. Patient will be weightbearing as tolerated with walker. Patient was encouraged to call our office with any questions, concerns, new problems. All questions were answered to best my ability. 11/11/24 0743 Cosigner Signature (if applicable): CC: ~ Signed [facility]05-18-2025 Consult note Author Neftali Cota [facility] Note Date/Time November 10, 2024 1:29p m [facility] Medical Records Department [address] [place] [address] Anesthesia Postop Eval II 11/10/24 1329 MR#: [id number] Acct: [id number] Name: KEVEN PÉREZ Rep #:[id number] : 1960 63 From: Neftali Cota MD PCP: Dr. Bernardo García MD Status :ADM IN Y Race: C Location: [place] [id number] 1 Anesthesia Postop Eval I Sum Postop Eval Completion status Anesthesia document: Postop Eval 1 completed: Yes Anesthesia Postop Eval I Summary Anesthesia Postop Eval I Summary: Anesthesia Postop Eval I: Assessment Summary Airway patent Yes 11/10/24 13:24 Spontaneous unlabored Yes 11/10/24 13:24 respirations Mental status nausea No 11/10/24 13:24 Vomiting No 11/10/24 13:24 Anesthesia Postop Eval I: Fluid Summary Crystalloid volume administer 1,000 11/10/24 13:24 (ml) Colloids volume administered ( ml) Blood Product volume administered (ml) Total IV fluid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 and clinical context of patient data. In addition, data may be omitted in some cases. CLINICAL DECISIONS SHOULD BE BASED ON THE PRIMARY CLINICAL RECORDS. [facility] [employer] [facility]. provides no warranty or guarantee of the accuracy or completeness of information in this document.
== END | disposition home or self-care (01) ==
LOC: MFPLAB 12:19
PROVIDERS: PCP Family Medicine; Referring Provider Family Medicine; Visit Provider Family Medicine
DX: R61 Generalized hyperhidrosis (principal); R79.89 Other specified abnormal findings of blood chemistry; R73.09 Other abnormal glucose
CPT/HCPCS: 36415; 80053; 83036; 84439; 84443; 84481; 85025; 85652; 86140

== ENCOUNTER → 2025-01-03 | Outpatient (CLI) | payer OTHER, SELFPAY ==
--- NOTE | 2025-01-02 08:30 | LES_PTH ---
PATIENT: LOYDA GONZALEZ [id number] AGE/SX: 64/M ROOM: RE01/03/[address]: Dr. Edilberto Blum MD : 1960 BED: DIS: 01/03/2025 SPEC #: [id number] RECD: 01/02/25 16:46 STATUS: ROBIN MARADIAGA #: [id number] NOREEN: 01/02/25 08:[address]: Edilberto Blum DEPT: SURGICAL PATHOLOGY RECD BY: Pravin Kelly ENTERED: 01/03/25 10:38 SP TYPE: Lesion OTHR DR: Dr. Bernardo García MD Tissues: A - Skin of arm B - Skin of face, NOS Procedures: Surgery Specimen Level IV HEADER OPERATION: Excision basal cell carcinoma right baptism, excision basal cell carcinoma right arm PRE-OP DIAGNOSIS: Right arm and right baptism lesions TISSUE SUBMITTED: A- Right arm, basal cell carcinoma *short - superior, long - lateral*, B- Right baptism, basal cell carcinoma *short - 12o'clock, long - 9o'clock* MICROSCOPIC DIAGNOSIS A. Arm, right, lesion, BCC, excision: Basal cell carcinoma. Margins negative for carcinoma.B. [place], right, BCC, excision: Basal cell carcinoma. Margins negative for carcinoma. MICROSCOPIC DESCRIPTION Slides are reviewed. GROSS DESCRIPTION Received in 2 formalin containers labeled with the patient's name and date of . Designated as: A. Lateral right BCC arm lesion is a 2.9 x 1.1 cm garcia, hairbearing skin ellipse excised to a maximum depth of 0.7 cm and with orientation as follows:Short suture: designated as superior, redesignated as 12:00 per the grossing PA.Long suture: designated as lateral, redesignated as 9:00 per the grossing PA. There is a 0.8 x 0.6 cm hypopigmented, scar located the following distances from the margins:12:00: 1.2 cm 3:00: 0.4 cm 6:00: 0.9 cm9:00: 0.2 cmDeep: 0.7 cm Ink mallory: 12:00 half (deep): Black3:00 (periphery): Green9:00 (periphery): Blue6:00 half (deep): [place] The specimen is serially sectioned from 12:00 to 6:00, and entirely submitted, sequentially in 3 cassettes (per diagram). B. Right baptism basal cell carcinoma is a 2.3 x 1.6 cm garcia skin ellipse excised to a maximum depth of 0.4 cm and with orientation as follows:Short suture: designated as 12:00.Long suture: designated as 9:00. There is a 0.9 x 0.7 cm focally peeling, hypopigmented scar located the following distances from the margins:12:00: 0.6 cm 3:00: 0.3 cm 6:00: 1.0 cm9:00: 0.4 cmDeep: 0.4 cm Ink mallory: 12:00 half (deep): Black3:00 (periphery): Green9:00 (periphery): Blue6:00 half (deep): [place] The specimen is serially sectioned from 12:00 to 6:00, and entirely submitted, sequentially in 3 cassettes (per diagram). VENKATESH 01/03/2025 CPT:71920a6
--- NOTE | 2025-01-02 08:30 | LES_PTH ---
PATIENT: LOYDA GONZALEZ LOC: [facility]#:[id number] AGE/SX: 64/M ROOM: RE01/03/[address]: Dr. Edilberto Blum MD : 1960 BED: DIS: 01/03/2025 SPEC #: [id number] RECD: 01/02/25 16:46 STATUS: ROBIN MARADIAGA #: [id number] NOREEN: 01/02/25 08:[address]: Edilberto Blum DEPT: SURGICAL PATHOLOGY RECD BY: Pravin Kelly ENTERED: 01/03/25 10:38 SP TYPE: Lesion OTHR DR: Dr. Bernardo García MD Tissues: A - Skin of arm B - Skin of face, NOS Procedures: Surgery Specimen Level IV HEADER OPERATION: Excision basal cell carcinoma right gnosticist, excision basal cell carcinoma right arm PRE-OP DIAGNOSIS: Right arm and right gnosticist lesions TISSUE SUBMITTED: A- Right arm, basal cell carcinoma *short - superior, long - lateral*, B- Right gnosticist, basal cell carcinoma *short - 12o'clock, long - 9o'clock* MICROSCOPIC DIAGNOSIS A. Arm, right, lesion, BCC, excision: Basal cell carcinoma. Margins negative for carcinoma.B. Wray, right, BCC, excision: Basal cell carcinoma. Margins negative for carcinoma. MICROSCOPIC DESCRIPTION Slides are reviewed. GROSS DESCRIPTION Received in 2 formalin containers labeled with the patient's name and date of . Designated as: A. Lateral right BCC arm lesion is a 2.9 x 1.1 cm garcia, hairbearing skin ellipse excised to a maximum depth of 0.7 cm and with orientation as follows:Short suture: designated as superior, redesignated as 12:00 per the grossing PA.Long suture: designated as lateral, redesignated as 9:00 per the grossing PA. There is a 0.8 x 0.6 cm hypopigmented, scar located the following distances from the margins:12:00: 1.2 cm 3:00: 0.4 cm 6:00: 0.9 cm9:00: 0.2 cmDeep: 0.7 cm Ink mallory: 12:00 half (deep): Black3:00 (periphery): Green9:00 (periphery): Blue6:00 half (deep): Purlear The specimen is serially sectioned from 12:00 to 6:00, and entirely submitted, sequentially in 3 cassettes (per diagram). B. Right gnosticist basal cell carcinoma is a 2.3 x 1.6 cm garcia skin ellipse excised to a maximum depth of 0.4 cm and with orientation as follows:Short suture: designated as 12:00.Long suture: designated as 9:00. There is a 0.9 x 0.7 cm focally peeling, hypopigmented scar located the following distances from the margins:12:00: 0.6 cm 3:00: 0.3 cm 6:00: 1.0 cm9:00: 0.4 cmDeep: 0.4 cm Ink mallory: 12:00 half (deep): Black3:00 (periphery): Green9:00 (periphery): Blue6:00 half (deep): Purlear The specimen is serially sectioned from 12:00 to 6:00, and entirely submitted, sequentially in 3 cassettes (per diagram). VENKATESH 01/03/2025 CPT:14085t3
== END | disposition home or self-care (01) ==
LOC: LABSPEC 10:24
PROVIDERS: PCP Family Medicine; Referring Provider Surgery Plastic and Reconstructive Surgery; Visit Provider Surgery Plastic and Reconstructive Surgery
DX: C44.319 Basal cell carcinoma of skin of other parts of face (principal); C44.612 Basal cell carcinoma of skin of right upper limb, including shoulder
CPT/HCPCS: 88305

== ENCOUNTER → 2025-03-12 | Outpatient (CLI) | payer OTHER, SELFPAY ==
--- NOTE | 2025-03-12 12:46 | CT_ITS ---
PROCEDURE: EXTREMITY LOWER WITHOUT CONTRA 03/12/2025 REASON FOR EXAM: PAIN TECHNIQUE: Procedure Code: CTELWO Modality: CT Procedure: EXTREMITY LOWER WITHOUT CONTRA Coronal and Sagittal reconstruction series were provided. CONTRAST: None One or more dose reduction techniques were used (e.g., Automated exposure control, adjustment of the mA and/or kV according to patient size, use of iterative reconstruction technique). 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 There are corticated osteochondral fragments in the superolateral joint space measuring 0.5 and 0.7 cm. Joints: The left hip joint space appears maintained. Soft Tissues: Calcifications are noted in the distal gluteus minimus and gluteus medius tendons which can indicate chronic inflammation. Vascular calcifications are noted. No mass or adenopathy is identified. 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 There are corticated osteochondral fragments in the superolateral joint space m easuring 0.5 and 0.7 cm. Reading Location: [facility]
== END | disposition home or self-care (01) ==
LOC: CT 12:44
PROVIDERS: PCP Family Medicine
DX: M25.551 Pain in right hip (principal)
CPT/HCPCS: 73700

== ENCOUNTER → 2025-04-01 | Outpatient (CLI) | payer OTHER, SELFPAY ==
[2025-04-01 10:30] LABS: Anion Gap 11 (5-15); BUN 21 mg/dL (4-19); BUN/Creat Ratio 14.7 RATIO (10-20); Calcium,Total 9.3 mg/dL (7.6-11.0); Carbon Dioxide 24.2 mmol/L (21.0-32.0); Chloride 103 mmol/L (98-108); Ferritin 123 ng/mL (37-417); Follicle Stimulating Hormone 5.1 mIU/mL; Glucose 96 mg/dL (70-99); Iron 134 ug/dL (65-175); Potassium 4.3 mmol/L (3.3-5.1)
[2025-04-02 11:08] LABS: Free T3 3.0 pg/mL (2.18-3.98); PSA,Total - Annual Screen 0.78 ng/mL (0.02-4.00)
[2025-04-05 01:07] LABS: Zinc, Plasma or Serum 82 ug/dL (44-115)
== END | disposition home or self-care (01) ==
LOC: MTLAB 07:46
PROVIDERS: PCP Family Medicine; Referring Provider Family Medicine; Visit Provider Family Medicine
DX: Z12.5 Encounter for screening for malignant neoplasm of prostate (principal); R79.89 Other specified abnormal findings of blood chemistry; R53.83 Other fatigue
CPT/HCPCS: 36415; 80048; 82728; 83001; 83002; 83540; 84153; 84270; 84439; 84443; 84481; 84630; G0103